=== PATIENT | male | born 1965 | race Hispanic/Latino ===

== ENCOUNTER 2019-06-12 13:01 | Inpatient (IN) | payer OTHER ==
[~2019-06-12] VITALS: Ht 139.7 cm; Wt 74.3 kg
[2019-06-12] MEDS ORDERED: SIMETHICONE 80 MG TAB.CHEW ONE (13:37)
[2019-06-12] MEDS ORDERED: DICYCLOMINE HCL 10 MG/ML 2ML AMP IM ONE (13:37)
[2019-06-12] MEDS ORDERED: ONDANSETRON HCL 4 MG/2 ML VIAL ONE (13:37)
[2019-06-12] MEDS ORDERED: SODIUM CHLORIDE 0.9% 1000ML 1,000 ML IV ONE (13:37)
[2019-06-12 13:52] LABS: BASOPHILS % (AUTO) 0.2 % (0.0-5.0); EOSINOPHILS % (AUTO) 0.2 % (0.0-8.0); HEMATOCRIT 26.2 % (42-54); LYMPHOCYTES % (AUTO) 8.3 % (21.0-51.0); MEAN CORPUSCULAR HEMOGLOBIN 26.5 pg (27.0-33.0); MEAN CORPUSCULAR HGB CONC 30.9 g/dL (32.0-36.0); MEAN CORPUSCULAR VOLUME 85.6 fL (79-99); MONOCYTES % (AUTO) 6.2 % (3.0-13.0); NEUTROPHILS % (AUTO) 84.6 % (40.0-77.0); PLATELET COUNT (AUTO) 99 K/uL (130-400); RED BLOOD CELL COUNT(AUTO) 3.06 MIL/uL (4.50-6.20); RED CELL DISTRIBUTION WIDTH 24.1 % (11.0-15.5); WHITE BLOOD COUNT (AUTO) 8.7 K/uL (4.8-10.8)
[2019-06-12 14:09] LABS: INR 1.48 (0.85-1.15); PARTIAL THROMBOPLASTIN TIME 32.3 SEC (26.3-35.5); PROTHROMBIN TIME 15.7 SEC (9.6-11.6)
[2019-06-12 14:10] LABS: ALBUMIN 2.3 g/dL (3.5-5.0); BILIRUBIN,TOTAL 10.3 mg/dL (0.2-1.0); CREATININE 1.4 mg/dL (0.5-1.5); TOTAL PROTEIN, SERUM 6.9 g/dL (6.0-8.3)
[2019-06-12 14:15] LABS: POTASSIUM 2.7 mmol/L (3.5-5.1)
[2019-06-12] MEDS ORDERED: POTASSIUM CHLORIDE 20 MEQ ERTAB PO ONE (15:50)
[2019-06-12] MEDS ORDERED: PHYTONADIONE 10 MG/1 ML AMP ONE (16:17)
[2019-06-12] MEDS: SODIUM CHLORIDE 0.9% 1000ML 1,000 ML IV SCH (17:00)
[2019-06-12] MEDS ORDERED: POTASSIUM CHLORIDE 20MEQ/100ML 100 ML IV PRN (17:00)
[2019-06-12] MEDS ORDERED: ONDANSETRON HCL 4 MG/2 ML VIAL IVP PRN (17:00)
[2019-06-12] MEDS ORDERED: LIDOCAINE HCL-MPF 1% 2ML VIAL IV PRN (17:00)
[2019-06-12] MEDS ORDERED: OCTREOTIDE ACETATE 1,250 MCG in SODIUM CHLORIDE 0.9% 250 ML IV SCH (17:00)
[2019-06-12 22:00] VITALS: BP 121/84
[2019-06-12 23:20] VITALS: BP 121/61
[2019-06-13] VITALS (14 sets, daily range): BP systolic 83–115; BP diastolic 46–80
[2019-06-13 00:43] LABS: HEMATOCRIT 22.3 % (42-54)
[2019-06-13 03:59] LABS: BASOPHILS % (AUTO) 0.3 % (0.0-5.0); EOSINOPHILS % (AUTO) 1.7 % (0.0-8.0); HEMATOCRIT 23.2 % (42-54); LYMPHOCYTES % (AUTO) 16.5 % (21.0-51.0); MEAN CORPUSCULAR HEMOGLOBIN 25.8 pg (27.0-33.0); MEAN CORPUSCULAR HGB CONC 30.6 g/dL (32.0-36.0); MEAN CORPUSCULAR VOLUME 84.4 fL (79-99); MONOCYTES % (AUTO) 6.6 % (3.0-13.0); NEUTROPHILS % (AUTO) 74.3 % (40.0-77.0); PLATELET COUNT (AUTO) 82 K/uL (130-400); RED BLOOD CELL COUNT(AUTO) 2.75 MIL/uL (4.50-6.20); RED CELL DISTRIBUTION WIDTH 24.2 % (11.0-15.5); WHITE BLOOD COUNT (AUTO) 6.4 K/uL (4.8-10.8)
[2019-06-13] MEDS ORDERED: SODIUM CHLORIDE 0.9% 100 ML IV ONE (04:00)
[2019-06-13] MEDS: PANTOPRAZOLE SODIUM 80 MG in SODIUM CHLORIDE 0.9% 100 ML IV SCH ×2 (04:09→16:50)
[2019-06-13] MEDS: SODIUM CHLORIDE 0.9% 1000ML 1,000 ML IV SCH ×3 (04:12→18:23)
[2019-06-13 04:29] LABS: ALBUMIN 1.7 g/dL (3.5-5.0); BILIRUBIN,TOTAL 8.7 mg/dL (0.2-1.0); CREATININE 1.1 mg/dL (0.5-1.5); TOTAL PROTEIN, SERUM 5.6 g/dL (6.0-8.3)
[2019-06-13] MEDS ORDERED: PROPOFOL 10 MG/ML 20ML VIAL IV ONE ×2 (07:28→07:29)
[2019-06-13] MEDS ORDERED: LIDOCAINE HCL 1% 20 ML VIAL ONE (07:29)
--- NOTE | 2019-06-13 09:15 | NUR ---
RETURNED TO ROOM VIA BED ACCOMPANIED BY LEATHER BELT MAKER. PT. AAOX3, RESP.'S EVEN AND UNLABORED. DENIES ANY C/O SOB, DENIES ANY CURRENT PAIN. COMPLETE ASSESSMENT DONE. CALL LIGHT WITHIN REACH, VERBALIZED ABILITY TO USE. BED LOW, SIDE RAILS UP X2.
[2019-06-13 12:05] LABS: HEMATOCRIT 27.8 % (42-54)
--- NOTE | 2019-06-13 12:47 | NUR ---
cm note met with patient and states resides at home with mother, and grandmother, [facility] he recently relocated from [place] to help care for grandmother, pt independent with adls and ambulation, no dme. no services, works, and able to drive. [facility] dc plan is back to home at [place]. provided with community resource packet, rx assist packet.referred to [facility] for possible medicaid assist. pt verbalizes understanding. Addendum: 06/13/19 at 1252 by CHELY PEREIRA CM Amended: Links added.
[2019-06-14 04:06] VITALS: BP 101/67
[2019-06-14] MEDS: SODIUM CHLORIDE 0.9% 1000ML 1,000 ML IV SCH ×3 (04:12→18:39)
[2019-06-14] MEDS ORDERED: SODIUM CHLORIDE 0.9% 100 ML IV ONE (05:32)
[2019-06-14] MEDS: PANTOPRAZOLE SODIUM 80 MG in SODIUM CHLORIDE 0.9% 100 ML IV SCH ×2 (05:38→17:12)
[2019-06-14 07:00] VITALS: BP 107/70
[2019-06-14 11:00] VITALS: BP 102/71
[2019-06-14 12:55] LABS: HEMATOCRIT 23.5 % (42-54); MEAN CORPUSCULAR HEMOGLOBIN 26.5 pg (27.0-33.0); MEAN CORPUSCULAR HGB CONC 30.2 g/dL (32.0-36.0); MEAN CORPUSCULAR VOLUME 87.7 fL (79-99); PLATELET COUNT (AUTO) 96 K/uL (130-400); RED BLOOD CELL COUNT(AUTO) 2.68 MIL/uL (4.50-6.20); RED CELL DISTRIBUTION WIDTH 23.4 % (11.0-15.5); WHITE BLOOD COUNT (AUTO) 5.6 K/uL (4.8-10.8)
[2019-06-14 13:18] LABS: BAND NEUTROPHILS % (MANUAL) 1 % (0-2); BASOPHILS % (MANUAL) 4 % (0-2); EOSINOPHILS % (MANUAL) 3 % (1-6); LYMPHOCYTES % (MANUAL) 14 % (22-44); MONOCYTES % (MANUAL) 1 % (2-9); REACTIVE LYMPHOCYTES 2 % (0-0); SEGMENTED NEUTROPHILS % 75 % (40-70)
[2019-06-14 13:19] LABS: PLATELET MORPHOLOGY COMMENT DECREASED
[2019-06-14 15:00] VITALS: BP 105/81
[2019-06-14 19:30] VITALS: BP 109/68
[2019-06-14 23:09] VITALS: BP 109/64
[2019-06-15 04:00] VITALS: BP 119/50
[2019-06-15] MEDS ORDERED: SODIUM CHLORIDE 0.9% 100 ML IV ONE (04:04)
[2019-06-15] MEDS: PANTOPRAZOLE SODIUM 80 MG in SODIUM CHLORIDE 0.9% 100 ML IV SCH ×2 (04:18→17:47)
[2019-06-15 04:36] LABS: BASOPHILS % (AUTO) 0.7 % (0.0-5.0); EOSINOPHILS % (AUTO) 2.5 % (0.0-8.0); HEMATOCRIT 23.4 % (42-54); LYMPHOCYTES % (AUTO) 16.6 % (21.0-51.0); MEAN CORPUSCULAR HEMOGLOBIN 26.3 pg (27.0-33.0); MEAN CORPUSCULAR HGB CONC 30.3 g/dL (32.0-36.0); MEAN CORPUSCULAR VOLUME 86.7 fL (79-99); MONOCYTES % (AUTO) 7.2 % (3.0-13.0); NEUTROPHILS % (AUTO) 72.5 % (40.0-77.0); PLATELET COUNT (AUTO) 90 K/uL (130-400); WHITE BLOOD COUNT (AUTO) 5.7 K/uL (4.8-10.8)
[2019-06-15 04:45] LABS: CREATININE 1.2 mg/dL (0.5-1.5); POTASSIUM 3.9 mmol/L (3.5-5.1)
[2019-06-15] MEDS: SODIUM CHLORIDE 0.9% 1000ML 1,000 ML IV SCH ×2 (05:00→15:00)
[2019-06-15 08:00] VITALS: BP 118/70
[2019-06-15 11:25] VITALS: BP 122/60
[2019-06-15] MEDS ORDERED: COMPOUND IV MISC 1 EACH IVSOLN MISC PRN (13:30)
[2019-06-15 13:49] LABS: % IRON SATURATION 5.2 % (30-44)
[2019-06-15 16:00] VITALS: BP 110/73
[2019-06-15] MEDS: IRON SUCROSE COMPLEX 100 MG in SODIUM CHLORIDE 0.9% 50 ML IV SCH (16:28)
[2019-06-15 19:05] VITALS: BP 102/67
[2019-06-15 23:03] VITALS: BP 91/64
[2019-06-16] VITALS (15 sets, daily range): BP systolic 91–122; BP diastolic 53–73
[2019-06-16] MEDS: PANTOPRAZOLE SODIUM 80 MG in SODIUM CHLORIDE 0.9% 100 ML IV SCH ×2 (03:33→16:19)
[2019-06-16 08:02] LABS: HEMATOCRIT 27.1 % (42-54); MEAN CORPUSCULAR HEMOGLOBIN 26.6 pg (27.0-33.0); MEAN CORPUSCULAR HGB CONC 29.5 g/dL (32.0-36.0); RED BLOOD CELL COUNT(AUTO) 3.01 MIL/uL (4.50-6.20); RED CELL DISTRIBUTION WIDTH 23.2 % (11.0-15.5); WHITE BLOOD COUNT (AUTO) 6.9 K/uL (4.8-10.8)
[2019-06-16 08:22] LABS: CREATININE 1.1 mg/dL (0.5-1.5)
[2019-06-16 08:27] LABS: ALBUMIN 1.7 g/dL (3.5-5.0); BILIRUBIN,TOTAL 11.5 mg/dL (0.2-1.0); TOTAL PROTEIN, SERUM 5.7 g/dL (6.0-8.3)
[2019-06-16] MEDS: IRON SUCROSE COMPLEX 100 MG in SODIUM CHLORIDE 0.9% 50 ML IV SCH (09:05)
[2019-06-16 09:42] LABS: INR 1.61 (0.85-1.15); PARTIAL THROMBOPLASTIN TIME 50.1 SEC (26.3-35.5); PROTHROMBIN TIME 17.1 SEC (9.6-11.6)
[2019-06-16] MEDS ORDERED: PHYTONADIONE 10 MG/1 ML AMP IM SCH (10:00)
--- NOTE | 2019-06-16 10:50 | NUR ---
DR. GATO HANNAH PAGED . AND RETURN CALL AND UDATE OF PT . LABS ,AND PT PLAN OF CARE TODAY, NO CHANGES . ONLY PT NEEDS TO SEE DR. HANNAH IN HIS OFFICE 4-5 DAYS AFTER DISCHARGE FOR PLAN OF CARE. TO FOLLOW AFTER DISCUSSION.
--- NOTE | 2019-06-16 11:10 | NUR ---
PT I N THE BATHROOM CHANGING , WHEN TELE MONITOR STAFF CALLED HEARTRATE UP TO THE 120.S . ASSIT PT NISHANT K TO BED AND HEART RATE WENT DOWN TO 100'S . PT STATED THAT HE GOT TIRED AND SOB. PT . PENDING A PARACENTESIS PROCEDURE. UPDATE DR. VILLAR OF HEART RATE CHANGES TO FOLLOW A 12 LEAD EKG
--- NOTE | 2019-06-16 11:25 | NUR ---
TO INTERVENTIONAL RADIOLOGY DEPT WITH STAFF , VIA WHEELCHAIR, , TELE MONITOR OFF . REVIEW V/S AND LAB WITH STAFF NURSE CASSIUS Barton.
--- NOTE | 2019-06-16 12:30 | NUR ---
U/S GD PARACENTESIS PROCEDURE PERFORMED BY DR Jolynn TOLEDO. PUNCTURE SITE RLQ AND PATIENT TOLERATED PROCEDURE WELL. TOTAL REMOVED 2.6 LITERS OF CLEAR YELLOW FLUID. END OF PROCEDURE AT 1215. CATHETER REMOVED AND DRESSING APPLIED. NO BLEEDING NOTED. REPORT GIVEN TO Russ PHILLIPS RN AND PATIENT TRANSPORTED TO [facility] VIA W/C AT 1230. AAO X3 WITH NO C/O PAIN. SPECIMEN SENT TO LAB.
--- NOTE | 2019-06-16 12:50 | NUR ---
BACK TO ROOM FROM THE PARACENTESIS PROCEDURE PT AAO X 3 DENIES ANY PAIN A SM DRSG TO HIS LOWER RT QUARDANT IN PLACE SOFT TO TOUCH NO DRAINAGE NOTED. POSTOP V/S STARTED AND OFFER HIS CL LIQ. PER REPORT A REMOVAL OF 2.6 LITERS AND SAMPLES WAS SEND TO LAB
[2019-06-16] MEDS ORDERED: ALBUMIN (HUMAN) 25% 100 ML IV SCH (14:00)
--- NOTE | 2019-06-16 14:08 | NUR ---
BLOOD PRESSURE DONE PER DR. GRAHAM ORTHOSATIC . FOLLOWS LYING HR OF 97, 99/60 SITTING HEART OF 96, B/P OF 112/66 STANDING HR OF 105, B/P OF 122/ 73
--- NOTE | 2019-06-16 14:30 | NUR ---
DR. VILLAR AWARE OF 12 LEAD EKG NO CHANGES
[2019-06-16 15:43] LABS: ALBUMIN,BODY FLUID 0.1 g/dL
[2019-06-16 16:19] LABS: APPEARANCE BODY FLUID CLEAR (CLEAR); COLOR,BODY FLUID YELLOW (LT YELLOW); SPECIMENTYPE,BODY FLUID ASCITES; TOTAL VOLUME,BODY FLUID 2600 mL
[2019-06-16 16:21] LABS: BODY FLUID WBC 35 /cu. mm.
[2019-06-16 16:22] LABS: BODY FLUID RBC 52 /cu. mm.
[2019-06-16 17:17] LABS: BF LYMPHOCYTE 82 %
[2019-06-17] VITALS: BP 91/55
[2019-06-17] MEDS: PANTOPRAZOLE SODIUM 80 MG in SODIUM CHLORIDE 0.9% 100 ML IV SCH (02:11)
[2019-06-17 04:00] VITALS: BP 93/62
[2019-06-17 06:10] LABS: BASOPHILS % (AUTO) 0.6 % (0.0-5.0); EOSINOPHILS % (AUTO) 1.3 % (0.0-8.0); HEMATOCRIT 24.4 % (42-54); LYMPHOCYTES % (AUTO) 13.5 % (21.0-51.0); MEAN CORPUSCULAR HEMOGLOBIN 26.9 pg (27.0-33.0); MEAN CORPUSCULAR HGB CONC 29.9 g/dL (32.0-36.0); MONOCYTES % (AUTO) 8.2 % (3.0-13.0); NEUTROPHILS % (AUTO) 75.5 % (40.0-77.0); PLATELET COUNT (AUTO) 98 K/uL (130-400); RED BLOOD CELL COUNT(AUTO) 2.71 MIL/uL (4.50-6.20); RED CELL DISTRIBUTION WIDTH 23.6 % (11.0-15.5)
[2019-06-17 07:53] VITALS: BP 103/63
[2019-06-17 08:27] LABS: ALBUMIN 1.9 g/dL (3.5-5.0); BILIRUBIN,TOTAL 12.1 mg/dL (0.2-1.0); TOTAL PROTEIN, SERUM 5.5 g/dL (6.0-8.3)
[2019-06-17 08:51] LABS: BILIRUBIN,DIRECT 10.2 mg/dL (0.0-0.3)
[2019-06-17] MEDS ORDERED: LACTULOSE 20 GM/30 ML UDCUP PO SCH (09:30)
[2019-06-17] MEDS: IRON SUCROSE COMPLEX 100 MG in SODIUM CHLORIDE 0.9% 50 ML IV SCH (09:33)
[2019-06-17 10:57] VITALS: BP 96/60
[2019-06-17] MEDS ORDERED: PANT40TA PO (11:29)
[2019-06-17] MEDS ORDERED: FERS325 PO (11:29)
[2019-06-17] MEDS ORDERED: LACT10SO PO (11:32)
--- NOTE | 2019-06-17 12:30 | NUR ---
DISCHARGE DISCHARGE INSTRUCTIONS GIVEN TO PATIENT, VERBALIZED UNDERSTANDING. PRESCRIPTIONS SENT TO [facility] PER PATIENT REQUEST. IV DISCONTINUED, TELEPAK REMOVED.
[2019-06-18] MEDS ORDERED: PANTOPRAZOLE SODIUM 40 MG TABLET.DR PO SCH (11:00)
== END 2019-06-17 13:00 | disposition home or self-care (01) | DRG 433 ==
LOC: EDH 13:01 → EDHIP 13:02 → 4BH 21:53
PROVIDERS: ADMIT Hospitalist; ATTEND Hospitalist
PROC: 0W9G3ZZ Drainage of Peritoneal Cavity, Percutaneous Approach (ICD-10-PCS; principal; 2019-06-16)
DX: K74.3 Primary biliary cirrhosis (principal); K92.2 Gastrointestinal hemorrhage, unspecified; E44.0 Moderate protein-calorie malnutrition; R18.8 Other ascites; D68.9 Coagulation defect, unspecified; D50.0 Iron deficiency anemia secondary to blood loss (chronic); Z68.38 Body mass index [BMI] 38.0-38.9, adult; F17.200 Nicotine dependence, unspecified, uncomplicated; D69.6 Thrombocytopenia, unspecified
CPT/HCPCS: 36415; 49083; 74181; 76700; 80048; 80053; 80076; 82042; 82140; 82270; 82607; 82746; 83540; 83550; 83615; 83690; 83735; 84157; 85014; 85018; 85025; 85027; 85610; 85730; 86850; 86900; 86901; 86922; 87071; 87205; 89051; 93005; A4606; C9113; G0378; J0500; J1756; J2354; J2405; J2704; J3430; J7030; P9046

== ENCOUNTER 2019-07-26 11:04 | Inpatient (IN) | payer MEDICAID, OTHER ==
[~2019-07-26] VITALS: Ht 170.2 cm; Wt 65.5 kg
[~2019-07-26 11:04] MED LIST: FERS325 PO; LACT10SO PO; PANT40TA PO
[2019-07-26 11:45] LABS: BASOPHILS % (AUTO) 0.2 % (0.0-5.0); EOSINOPHILS % (AUTO) 1.2 % (0.0-8.0); HEMATOCRIT 22.3 % (42-54); LYMPHOCYTES % (AUTO) 8.9 % (21.0-51.0); MEAN CORPUSCULAR HEMOGLOBIN 29.3 pg (27.0-33.0); MEAN CORPUSCULAR HGB CONC 31.8 g/dL (32.0-36.0); MEAN CORPUSCULAR VOLUME 92.1 fL (79-99); MONOCYTES % (AUTO) 5.3 % (3.0-13.0); NEUTROPHILS % (AUTO) 83.8 % (40.0-77.0); PLATELET COUNT (AUTO) 141 K/uL (130-400); RED BLOOD CELL COUNT(AUTO) 2.42 MIL/uL (4.50-6.20); RED CELL DISTRIBUTION WIDTH 21.9 % (11.0-15.5); WHITE BLOOD COUNT (AUTO) 10.3 K/uL (4.8-10.8)
[2019-07-26 11:55] LABS: CREATININE 1.5 mg/dL (0.5-1.5); POTASSIUM 4.3 mmol/L (3.5-5.1)
[2019-07-26 11:59] LABS: ALBUMIN 1.7 g/dL (3.5-5.0); BILIRUBIN,TOTAL 9.7 mg/dL (0.2-1.0); TOTAL PROTEIN, SERUM 5.9 g/dL (6.0-8.3)
[2019-07-26 12:58] LABS: INR 1.45 (0.85-1.15); PARTIAL THROMBOPLASTIN TIME 31.1 SEC (26.3-35.5); PROTHROMBIN TIME 15.4 SEC (9.6-11.6)
[2019-07-26] MEDS ORDERED: SODIUM CHLORIDE 0.9% 1000ML 1,000 ML IV ONE (13:24)
[2019-07-26] MEDS ORDERED: NITROGLYCERIN 0.4 MG SL TAB SL PRN (13:45)
[2019-07-26] MEDS ORDERED: ACETAMINOPHEN 325 MG TAB PO PRN ×2 (13:45)
[2019-07-26] MEDS ORDERED: MAG HYDROX/AL HYDROX/SIMETH ES 30 ML SUSP UDCUP PO PRN (13:45)
[2019-07-26] MEDS ORDERED: GUAIFENESIN-DM 200/20 MG 10 ML PO PRN (13:45)
[2019-07-26] MEDS ORDERED: ALBUMIN (HUMAN) 25% 200 ML IV SCH (13:45)
[2019-07-26] MEDS ORDERED: LACTULOSE 20 GM/30 ML UDCUP PO PRN (13:45)
[2019-07-26] MEDS ORDERED: ONDANSETRON HCL 4 MG/2 ML VIAL IV PRN (13:45)
[2019-07-26] MEDS ORDERED: DIPHENHYDRAMINE HCL 25 MG CAPSULE PO PRN (13:45)
[2019-07-26] MEDS ORDERED: DiphenhydrAMINE HCL 50 MG/ML VIAL IV PRN (13:45)
[2019-07-26 13:54] LABS: APPEARANCE,URINE CLEAR (CLEAR); BILIRUBIN,URINE SMALL (NEGATIVE); COLOR,URINE YELLOW (YELLOW); GLUCOSE, URINE (UA) NEGATIVE (NEGATIVE); KETONES,URINE NEGATIVE (NEGATIVE); LEUKOCYTE ESTERASE ,URINE NEGATIVE (NEGATIVE); NITRATE,URINE NEGATIVE (NEGATIVE); OCCULT BLOOD,URINE NEGATIVE (NEGATIVE); PH,URINE 6.5 (5.0-8.0); PROTEIN,URINE NEGATIVE (NEGATIVE); UROBILINOGEN,URINE 0.2 mg/dL (0.2-1.0)
[2019-07-26 14:04] LABS: BACTERIA,URINE Rare /HPF (None Seen); RBC,URINE None Seen /HPF (0-1); SQUAMOUS EPITHELIAL CELL,UR Rare /HPF (0-2); WBC,URINE None Seen /HPF (0-1)
[2019-07-26 17:18] LABS: HEMATOCRIT 20.8 % (42-54)
--- NOTE | 2019-07-26 17:32 | NUR ---
Transfusion orders Notified Dr. Schaefer of BP 91/52, hemoglobin 6.6/20.8 as reported by Stephy Ryan RN in emergency room. Received telephone order for 1 unit PRBC. Order placed and blood bank notified. Unit to be ready in a few minutes.
--- NOTE | 2019-07-26 17:32 | NUR ---
Received report from Cecy Ryan RN of ER, reports admission for Lower GI bleed sustaining BP 91/52 with hemoglobin of 6.6/20.8. History of Liver failure, cirrhosis, occult stool positive. Per Stephy Ryan RN no order on file for transfusion.
[2019-07-26 17:58] LABS: CREATININE 1.3 mg/dL (0.5-1.5); POTASSIUM 3.9 mmol/L (3.5-5.1)
[2019-07-26 18:03] VITALS: BP 112/55
[2019-07-26 19:55] VITALS: BP 95/58
--- NOTE | 2019-07-26 20:17 | NUR ---
RECEIVED PATIENT IN BED, AAOX3, NO ACUTE DISTRESS NOTED. PT CURRENTLY RECEIVING 1 UNIT OF PRBC, TOLERATING WELL, NO ADVERSE REACTIONS NOTED. POC DISCUSSED WITH PATIENT. WILL CONT TO MONITOR CLOSELY. ASSESSMENT DOCUMENTED.
[2019-07-26] MEDS: FAMOTIDINE/PF 20 MG/2 ML VIAL IV SCH (21:21)
[2019-07-26 23:22] VITALS: BP 91/57
[2019-07-27 03:06] VITALS: BP 90/57
[2019-07-27 05:46] LABS: BASOPHILS % (AUTO) 0.4 % (0.0-5.0); EOSINOPHILS % (AUTO) 1.5 % (0.0-8.0); HEMATOCRIT 23.1 % (42-54); LYMPHOCYTES % (AUTO) 10.8 % (21.0-51.0); MEAN CORPUSCULAR HEMOGLOBIN 28.8 pg (27.0-33.0); MEAN CORPUSCULAR VOLUME 89.9 fL (79-99); NEUTROPHILS % (AUTO) 79.8 % (40.0-77.0); PLATELET COUNT (AUTO) 124 K/uL (130-400); RED BLOOD CELL COUNT(AUTO) 2.57 MIL/uL (4.50-6.20); WHITE BLOOD COUNT (AUTO) 7.4 K/uL (4.8-10.8)
[2019-07-27 06:02] LABS: ALBUMIN 1.4 g/dL (3.5-5.0); BILIRUBIN,TOTAL 10.9 mg/dL (0.2-1.0); CREATININE 1.3 mg/dL (0.5-1.5); POTASSIUM 4.1 mmol/L (3.5-5.1); TOTAL PROTEIN, SERUM 4.8 g/dL (6.0-8.3)
[2019-07-27 08:34] VITALS: BP 95/52
[2019-07-27] MEDS ORDERED: ALBUMIN (HUMAN) 25% 50 ML IV SCH (09:00)
[2019-07-27] MEDS: MIDODRINE HCL 5 MG TABLET PO SCH ×3 (09:26→20:44)
[2019-07-27] MEDS: FAMOTIDINE/PF 20 MG/2 ML VIAL IV SCH ×2 (09:26→20:44)
[2019-07-27 12:31] VITALS: BP 100/57
[2019-07-27] MEDS: FERROUS SULFATE 325 MG TABLET.DR PO SCH ×2 (13:40→20:44)
[2019-07-27 15:54] VITALS: BP 97/46
--- NOTE | 2019-07-27 16:37 | NUR ---
D/C PLAN CM spoke to pt regarding d/c planning. Pt is ind. and lives with mother. Denies having any DME. States family can assist if needed. CM provided community resources packet. Plan to home. No needs verbalized or identified. Addendum: 07/27/19 at 1641 by BRIGIDO MEYER CM Amended: Links added.
[2019-07-27 19:40] VITALS: BP 88/47
[2019-07-27 20:30] VITALS: BP 91/54
[2019-07-28] VITALS (16 sets, daily range): BP systolic 77–104; BP diastolic 40–53
[2019-07-28 05:24] LABS: BASOPHILS % (AUTO) 0.2 % (0.0-5.0); EOSINOPHILS % (AUTO) 1.3 % (0.0-8.0); HEMATOCRIT 25.2 % (42-54); LYMPHOCYTES % (AUTO) 8.9 % (21.0-51.0); MEAN CORPUSCULAR HEMOGLOBIN 29.2 pg (27.0-33.0); MEAN CORPUSCULAR HGB CONC 32.1 g/dL (32.0-36.0); MONOCYTES % (AUTO) 5.1 % (3.0-13.0); NEUTROPHILS % (AUTO) 83.8 % (40.0-77.0); PLATELET COUNT (AUTO) 143 K/uL (130-400); RED BLOOD CELL COUNT(AUTO) 2.77 MIL/uL (4.50-6.20); RED CELL DISTRIBUTION WIDTH 19.8 % (11.0-15.5); WHITE BLOOD COUNT (AUTO) 8.6 K/uL (4.8-10.8)
[2019-07-28 05:39] LABS: INR 1.57 (0.85-1.15); PROTHROMBIN TIME 16.7 SEC (9.6-11.6)
[2019-07-28 05:46] LABS: ALBUMIN 1.7 g/dL (3.5-5.0); CREATININE 1.2 mg/dL (0.5-1.5); POTASSIUM 4.4 mmol/L (3.5-5.1); TOTAL PROTEIN, SERUM 5.1 g/dL (6.0-8.3)
[2019-07-28] MEDS: FAMOTIDINE/PF 20 MG/2 ML VIAL IV SCH ×2 (08:13→19:46)
[2019-07-28] MEDS: FERROUS SULFATE 325 MG TABLET.DR PO SCH ×3 (08:13→19:46)
[2019-07-28] MEDS: MIDODRINE HCL 5 MG TABLET PO SCH ×3 (08:13→20:06)
[2019-07-28] MEDS ORDERED: ALBUMIN (HUMAN) 25% 100 ML IV ONE (08:45)
[2019-07-28] MEDS ORDERED: ALBUMIN (HUMAN) 25% 200 ML IV ONE (08:45)
--- NOTE | 2019-07-28 08:46 | NUR ---
DR IVETT ECHEVARRIA PAGED RE; PLAN OR IF OKAY TO FEED PATIENT.
--- NOTE | 2019-07-28 08:57 | NUR ---
SPOKE WITH DR. SWAPNA LINO; PLAN STATES MAY D/C IF H/H IS ABOVE 7. PATIENT IS A CHX CIRRHOSIS.
[2019-07-28] MEDS ORDERED: CEFTRIAXONE SODIUM 1 GM IVP SCH (09:00)
--- NOTE | 2019-07-28 09:00 | NUR ---
U/S GUIDED PARACENTESIS PROCEDURE PERFORMED BY DR. CUNNINGHAM. PUNCTURE SITE RIGHT LOWER QUADRANT OF ABDOMEN AND PATIENT TOLERATED PROCEDURE WELL. TOTAL REMOVED 7.6 LITERS OF CLOUDY YELLOW ASCITES FLUID. END OF PROCEDURE AT 924. CATHETER REMOVED AND DRESSING APPLIED. NO BLEEDING NOTED. ALBUMIN 25% 50 GRAMS ORDERED PER [facility] ALBUMIN PROTOCOL TO BE GIVEN UPON ARRIVAL TO FLOOR. CALLED REPORT TO COLIN RUIZ. PATIENT TRANSPORTED VIA W/C TO 305 @ 0945. PT STABLE, AAO X3 WITH NO C/O PAIN.
--- NOTE | 2019-07-28 10:30 | NUR ---
S/P RIGHT PARACENTESIS 7.6 LITERS OUT, PATIENT WITH HYPOTENSION IN SBP 80'S-90'S, DR. KESSLER AWARE. HE WILL ENTER ORDERS. Addendum: 07/28/19 at 1454 by JOSEPH COLIN RN RN RIGHT LOWER QUDRANT PARACENTESIS SITE DRESSING; CLEAN AND DRY. NO BLEEDING.
[2019-07-28 11:26] LABS: ALBUMIN,BODY FLUID 0.1 g/dL
[2019-07-28 13:01] LABS: SPECIMENTYPE,BODY FLUID ASCITES
[2019-07-28 13:02] LABS: APPEARANCE BODY FLUID SLIGHTLY CLOUDY (CLEAR); COLOR,BODY FLUID YELLOW (LT YELLOW); TOTAL VOLUME,BODY FLUID 7600 mL
[2019-07-28 13:03] LABS: BODY FLUID WBC 71 /cu. mm.
[2019-07-28 13:04] LABS: BODY FLUID RBC 68 /cu. mm.
[2019-07-28] MEDS: LACTULOSE 20 GM/30 ML UDCUP PO SCH ×2 (13:07→19:46)
[2019-07-28 13:13] LABS: BF LYMPHOCYTE 31 %; BF MONOCYTE 49 %
[2019-07-28] MEDS ORDERED: MIDODRINE HCL 5 MG TABLET PO SCH (14:30)
[2019-07-28] MEDS ORDERED: ALBUMIN (HUMAN) 25% 100 ML IV SCH (14:45)
--- NOTE | 2019-07-28 15:23 | NUR ---
BP 96/59, HOLD TRANSFER; PER DR. VICENTE TRANSFER TO PCU HELD. PATIENT IS ASYMPTOMATIC AT THIS TIME BP IS GOING RISING SLOWLY. MONITOR AND CONTINUE WITH ALBUMIN.
[2019-07-28 16:12] LABS: BASOPHILS % (AUTO) 0.3 % (0.0-5.0); EOSINOPHILS % (AUTO) 1.6 % (0.0-8.0); HEMATOCRIT 21.9 % (42-54); LYMPHOCYTES % (AUTO) 10.2 % (21.0-51.0); MEAN CORPUSCULAR HEMOGLOBIN 29.2 pg (27.0-33.0); MEAN CORPUSCULAR VOLUME 91.3 fL (79-99); MONOCYTES % (AUTO) 7.2 % (3.0-13.0); NEUTROPHILS % (AUTO) 80.4 % (40.0-77.0); PLATELET COUNT (AUTO) 108 K/uL (130-400); RED CELL DISTRIBUTION WIDTH 20.1 % (11.0-15.5); WHITE BLOOD COUNT (AUTO) 6.7 K/uL (4.8-10.8)
--- NOTE | 2019-07-28 16:55 | NUR ---
DR EUCEDA AWARE OF 7.0 H/H STATES REPEAT IN 4 HOURS.
[2019-07-28] MEDS: ALBUMIN (HUMAN) 25% 50 ML IV SCH ×2 (19:00→23:21)
[2019-07-28] MEDS: LEVOFLOXACIN 500 MG/D5W 100 ML 100 ML IV SCH (20:07)
--- NOTE | 2019-07-28 21:05 | NUR ---
paged lonnie springer about patient's hemoglobin of 6.8 and hematocrit of 22.0. pending call back
--- NOTE | 2019-07-28 21:22 | NUR ---
paged lonnie springer again about patient's hemoglobin and hematocrit. pending call back
--- NOTE | 2019-07-28 21:48 | NUR ---
paged lonnie springer again. pending call back
--- NOTE | 2019-07-28 22:30 | NUR ---
paged lonnie springer. pending call back
--- NOTE | 2019-07-29 02:07 | NUR ---
transfused 1 unit of packed red blood cells from 00:05 to 02:05 as ordered by gian fleming. pending lab draws in the am. no allergic reaction or pain. no issues. vital signs stable at 130/54 blood pressure, respirations 18, heart rate 81, and temperature of 99 at 02:10.
[2019-07-29 03:36] VITALS: BP 118/55
[2019-07-29] MEDS: ALBUMIN (HUMAN) 25% 50 ML IV SCH ×3 (04:38→18:14)
[2019-07-29 05:02] LABS: HEMATOCRIT 23.9 % (42-54); MEAN CORPUSCULAR HEMOGLOBIN 29.8 pg (27.0-33.0); MEAN CORPUSCULAR HGB CONC 32.6 g/dL (32.0-36.0); MEAN CORPUSCULAR VOLUME 91.2 fL (79-99); PLATELET COUNT (AUTO) 105 K/uL (130-400); RED BLOOD CELL COUNT(AUTO) 2.62 MIL/uL (4.50-6.20); RED CELL DISTRIBUTION WIDTH 18.8 % (11.0-15.5); WHITE BLOOD COUNT (AUTO) 6.1 K/uL (4.8-10.8)
[2019-07-29 05:15] LABS: BASOPHILS % (MANUAL) 2 % (0-2); EOSINOPHILS % (MANUAL) 3 % (1-6); LYMPHOCYTES % (MANUAL) 14 % (22-44); MAN.DIFF COMMENT-IMPRESSION MANUAL DIFFERENTIAL; MONOCYTES % (MANUAL) 6 % (2-9); PLATELET MORPHOLOGY COMMENT DECREASED; SEGMENTED NEUTROPHILS % 75 % (40-70)
[2019-07-29 05:34] LABS: ALBUMIN 2.3 g/dL (3.5-5.0); BILIRUBIN,TOTAL 10.2 mg/dL (0.2-1.0); CREATININE 1.2 mg/dL (0.5-1.5); POTASSIUM 3.9 mmol/L (3.5-5.1); TOTAL PROTEIN, SERUM 4.8 g/dL (6.0-8.3)
[2019-07-29 07:30] VITALS: BP 101/47
[2019-07-29] MEDS: FERROUS SULFATE 325 MG TABLET.DR PO SCH ×3 (09:33→19:42)
[2019-07-29] MEDS: FAMOTIDINE/PF 20 MG/2 ML VIAL IV SCH ×2 (09:33→19:42)
[2019-07-29] MEDS: LACTULOSE 20 GM/30 ML UDCUP PO SCH ×2 (09:33→19:42)
[2019-07-29] MEDS: MIDODRINE HCL 5 MG TABLET PO SCH ×3 (09:33→19:42)
[2019-07-29 11:00] VITALS: BP 120/59
[2019-07-29] MEDS ORDERED: PHARMACY COMMUNICATION MISC SCH (14:45)
[2019-07-29 16:00] VITALS: BP 109/54
[2019-07-29 19:00] VITALS: BP 115/50
[2019-07-29] MEDS: LEVOFLOXACIN 500 MG/D5W 100 ML 100 ML IV SCH (19:42)
[2019-07-29 23:20] VITALS: BP 122/53
[2019-07-30 04:02] VITALS: BP 116/56
[2019-07-30] MEDS ORDERED: BISACODYL 10 MG SUPP.RECT RC ONE ×2 (04:45→04:49)
[2019-07-30 06:35] LABS: BASOPHILS % (AUTO) 0.4 % (0.0-5.0); EOSINOPHILS % (AUTO) 2.6 % (0.0-8.0); HEMATOCRIT 30.1 % (42-54); LYMPHOCYTES % (AUTO) 11.3 % (21.0-51.0); MEAN CORPUSCULAR HEMOGLOBIN 30.5 pg (27.0-33.0); MEAN CORPUSCULAR HGB CONC 32.6 g/dL (32.0-36.0); MEAN CORPUSCULAR VOLUME 93.8 fL (79-99); NEUTROPHILS % (AUTO) 79.3 % (40.0-77.0); PLATELET COUNT (AUTO) 117 K/uL (130-400); RED BLOOD CELL COUNT(AUTO) 3.21 MIL/uL (4.50-6.20); RED CELL DISTRIBUTION WIDTH 19.9 % (11.0-15.5); WHITE BLOOD COUNT (AUTO) 7.7 K/uL (4.8-10.8)
[2019-07-30 06:52] LABS: BILIRUBIN,TOTAL 11.9 mg/dL (0.2-1.0); CREATININE 1.2 mg/dL (0.5-1.5); POTASSIUM 3.8 mmol/L (3.5-5.1); TOTAL PROTEIN, SERUM 5.8 g/dL (6.0-8.3)
[2019-07-30 07:57] VITALS: BP 120/59
[2019-07-30] MEDS: LACTULOSE 20 GM/30 ML UDCUP PO SCH ×3 (09:00→22:37)
[2019-07-30] MEDS: MIDODRINE HCL 5 MG TABLET PO SCH ×3 (09:31→21:37)
[2019-07-30] MEDS: FERROUS SULFATE 325 MG TABLET.DR PO SCH ×3 (09:32→21:37)
[2019-07-30] MEDS: FAMOTIDINE/PF 20 MG/2 ML VIAL IV SCH ×2 (09:32→21:37)
[2019-07-30 10:34] VITALS: BP 128/53
[2019-07-30 16:01] VITALS: BP 121/61
[2019-07-30 20:00] VITALS: BP 110/54
[2019-07-30] MEDS: LEVOFLOXACIN 500 MG/D5W 100 ML 100 ML IV SCH (21:35)
--- NOTE | 2019-07-30 22:30 | NUR ---
Hospitalist on-call STANLEY ABURTO was called reporting pt refused to take Lactulose and wanted suppository in AM , since Lactulose will not make him defecate. Ordered to talk to pt and explain that he still needs to take Lactulose for his current condition and will be given Dulcolax supp in AM. 2236: Oracle Technical Developer explained again the importance of taking lactulose and that Dulcolax supp will be given in AM. Pt agreed and took the lactulose.
[2019-07-31] VITALS: BP 126/64
[2019-07-31 03:57] VITALS: BP 130/61
[2019-07-31] MEDS ORDERED: BISACODYL 10 MG SUPP.RECT RC ONE (05:00)
[2019-07-31 05:45] LABS: BASOPHILS % (AUTO) 0.3 % (0.0-5.0); EOSINOPHILS % (AUTO) 1.8 % (0.0-8.0); HEMATOCRIT 27.7 % (42-54); LYMPHOCYTES % (AUTO) 9.9 % (21.0-51.0); MEAN CORPUSCULAR HEMOGLOBIN 30.2 pg (27.0-33.0); MEAN CORPUSCULAR HGB CONC 32.1 g/dL (32.0-36.0); MEAN CORPUSCULAR VOLUME 93.9 fL (79-99); MONOCYTES % (AUTO) 5.9 % (3.0-13.0); NEUTROPHILS % (AUTO) 81.8 % (40.0-77.0); PLATELET COUNT (AUTO) 115 K/uL (130-400); RED BLOOD CELL COUNT(AUTO) 2.95 MIL/uL (4.50-6.20); RED CELL DISTRIBUTION WIDTH 20.1 % (11.0-15.5); WHITE BLOOD COUNT (AUTO) 6.1 K/uL (4.8-10.8)
[2019-07-31 08:00] VITALS: BP 120/70
[2019-07-31] MEDS: LACTULOSE 20 GM/30 ML UDCUP PO SCH ×2 (09:21→13:55)
[2019-07-31] MEDS: FERROUS SULFATE 325 MG TABLET.DR PO SCH ×2 (09:21→13:54)
[2019-07-31] MEDS: MIDODRINE HCL 5 MG TABLET PO SCH ×2 (09:21→13:54)
[2019-07-31] MEDS: FAMOTIDINE/PF 20 MG/2 ML VIAL IV SCH (09:22)
[2019-07-31 12:00] VITALS: BP 124/67
--- NOTE | 2019-07-31 14:30 | NUR ---
PT D/C INSTRUCTIONS GIVEN USING TEACH BACK TECHNIQUE RE; NEW MEDS, S/S TO WATCH FOR AND WHEN TO CALL MD OR 911. Make sure to follow up with your primary doctor. Will will provide a list of primary physicians in your area. Follow up with Dr. Shelton Manager Etl in 1-2 weeks call to set up an appointment at phone [phone]. If you experience severe abdominal pain, shortness of breath that does not resolve with rest, fever of 101.0, nausea vomiting call your primary physician or visit your nearest emergency room, or you may call 911. Make sure to continue taking lactulose as it will decrease your ammonia level. Make sure to continue taking your Midodrine as it will help keep your blood pressure elevated within a normal range of sytolic blood pressure of less than 130 sytolic blood pressure higher than 90. call your primary doctor if blood pressure remains lower than sytolic blood pressure less than 90 (top number in blood pressure reading). IV OUT INTACT, NO BLEEDING, AAOX3, DENIES ANY CONCERNS OR QUESTIONS AT THIS TIME. TELE REMOVED.
== END 2019-07-31 15:40 | disposition home or self-care (01) | DRG 433 ==
LOC: EDH 11:04 → EDHIP 11:05 → 3BH 17:59
PROVIDERS: ADMIT Family Medicine; ATTEND Family Medicine
PROC: 0W9G3ZZ Drainage of Peritoneal Cavity, Percutaneous Approach (ICD-10-PCS; principal; 2019-07-28)
PROC: 30233N1 Transfusion of Nonautologous Red Blood Cells into Peripheral Vein, Percutaneous Approach (ICD-10-PCS; 2019-07-28)
DX: K74.3 Primary biliary cirrhosis (principal); D62 Acute posthemorrhagic anemia; N17.9 Acute kidney failure, unspecified; K92.2 Gastrointestinal hemorrhage, unspecified; K76.6 Portal hypertension; D68.4 Acquired coagulation factor deficiency; E87.1 Hypo-osmolality and hyponatremia; E44.0 Moderate protein-calorie malnutrition; N18.9 Chronic kidney disease, unspecified; E11.22 Type 2 diabetes mellitus with diabetic chronic kidney disease; F10.10 Alcohol abuse, uncomplicated; E86.9 Volume depletion, unspecified; I95.89 Other hypotension; I25.10 Atherosclerotic heart disease of native coronary artery without angina pectoris; Z83.3 Family history of diabetes mellitus; K74.60 Unspecified cirrhosis of liver; Z68.22 Body mass index [BMI] 22.0-22.9, adult
CPT/HCPCS: 36415; 36430; 49083; 80048; 80053; 81001; 82040; 82042; 82140; 82270; 82550; 83605; 83690; 84157; 84484; 85014; 85018; 85025; 85610; 85730; 86850; 86900; 86901; 86922; 87071; 87076; 87205; 89051; 93005; 94760; A4606; G0378; J0696; J1956; J3490; J7030; P9016; P9046; P9047

== ENCOUNTER 2019-08-24 17:42 | Inpatient (IN) | payer OTHER ==
[~2019-08-24] VITALS: Ht 170.2 cm; Wt 61.8 kg
[~2019-08-24 17:42] MED LIST changes: -LACT10SO PO
[2019-08-24 18:58] LABS: BASOPHILS % (AUTO) 0.1 % (0.0-5.0); EOSINOPHILS % (AUTO) 0.4 % (0.0-8.0); HEMATOCRIT 31.8 % (42-54); LYMPHOCYTES % (AUTO) 4.7 % (21.0-51.0); MEAN CORPUSCULAR HEMOGLOBIN 31.6 pg (27.0-33.0); MEAN CORPUSCULAR HGB CONC 33.6 g/dL (32.0-36.0); MEAN CORPUSCULAR VOLUME 93.8 fL (79-99); MONOCYTES % (AUTO) 4.3 % (3.0-13.0); NEUTROPHILS % (AUTO) 89.6 % (40.0-77.0); PLATELET COUNT (AUTO) 95 K/uL (130-400); RED BLOOD CELL COUNT(AUTO) 3.39 MIL/uL (4.50-6.20); RED CELL DISTRIBUTION WIDTH 19.4 % (11.0-15.5); WHITE BLOOD COUNT (AUTO) 8.2 K/uL (4.8-10.8)
[2019-08-24] MEDS ORDERED: DICYCLOMINE HCL 20 MG TAB ONE (19:06)
[2019-08-24] MEDS ORDERED: ONDANSETRON HCL 4 MG/2 ML VIAL ONE (19:06)
[2019-08-24 19:18] LABS: CREATININE 4.5 mg/dL (0.5-1.5); POTASSIUM 4.8 mmol/L (3.5-5.1)
[2019-08-24 19:31] LABS: ALBUMIN 2.5 g/dL (3.5-5.0); TOTAL PROTEIN, SERUM 6.7 g/dL (6.0-8.3)
[2019-08-24 19:46] LABS: BILIRUBIN,TOTAL 17.7 mg/dL (0.2-1.0)
[2019-08-24 19:47] LABS: INR 1.52 (0.85-1.15); PARTIAL THROMBOPLASTIN TIME 33.8 SEC (26.3-35.5); PROTHROMBIN TIME 16.2 SEC (9.6-11.6)
[2019-08-24] MEDS ORDERED: HYDRALAZINE HCL 20 MG/ML VIAL IV PRN (22:00)
[2019-08-24] MEDS: LACTULOSE 20 GM/30 ML UDCUP PO SCH (22:00)
[2019-08-24] MEDS ORDERED: MORPHINE SULFATE 2 MG/ML 1ML SYG IV PRN (22:00)
[2019-08-24] MEDS: CEFTRIAXONE SODIUM 1 GM IVP SCH (22:30)
[2019-08-25] MEDS ORDERED: AZITHROMYCIN 500MG+NS 250ML 250 ML IV ONE (01:19)
[2019-08-25] MEDS ORDERED: CEFTRIAXONE SODIUM 1 GM ONE (01:19)
--- NOTE | 2019-08-25 02:20 | NUR ---
RECEIVED BY JOHN FROM ER. ASSISTED TO BED. PLACED ON COLLEGE OR UNIVERSITY BUSINESS MANAGER, NIBP, PULSE OXIMETER. DENIES PAIN. GIVEN CALL LIGHT AFTER EXPLAINING IT TO HIM. SEE ADMISSION DATA BASE.
[2019-08-25 03:04] VITALS: BP 107/62
[2019-08-25] MEDS ORDERED: SPIR100T5 PO (03:42)
[2019-08-25] MEDS ORDERED: FURO40TA7 PO (03:42)
[2019-08-25] MEDS ORDERED: URSO300C4 PO (03:42)
[2019-08-25] MEDS: LACTULOSE 20 GM/30 ML UDCUP PO SCH ×3 (05:05→20:37)
[2019-08-25 07:34] LABS: BASOPHILS % (AUTO) 0.1 % (0.0-5.0); EOSINOPHILS % (AUTO) 1.2 % (0.0-8.0); HEMATOCRIT 29.1 % (42-54); LYMPHOCYTES % (AUTO) 8.5 % (21.0-51.0); MEAN CORPUSCULAR HEMOGLOBIN 33.1 pg (27.0-33.0); MEAN CORPUSCULAR HGB CONC 34.7 g/dL (32.0-36.0); MEAN CORPUSCULAR VOLUME 95.4 fL (79-99); MONOCYTES % (AUTO) 4.7 % (3.0-13.0); NEUTROPHILS % (AUTO) 84.9 % (40.0-77.0); PLATELET COUNT (AUTO) 75 K/uL (130-400); RED BLOOD CELL COUNT(AUTO) 3.05 MIL/uL (4.50-6.20); RED CELL DISTRIBUTION WIDTH 19.4 % (11.0-15.5); WHITE BLOOD COUNT (AUTO) 6.8 K/uL (4.8-10.8)
[2019-08-25 07:58] LABS: CREATININE 4.4 mg/dL (0.5-1.5); POTASSIUM 4.7 mmol/L (3.5-5.1)
[2019-08-25 08:00] VITALS: BP 88/56
[2019-08-25 12:00] VITALS: BP 103/52
[2019-08-25] MEDS ORDERED: MIDODRINE HCL 5 MG TABLET PO SCH (16:00)
[2019-08-25 17:00] VITALS: BP 93/56
[2019-08-25 19:28] LABS: APPEARANCE,URINE SL CLOUDY (CLEAR); BILIRUBIN,URINE LARGE (NEGATIVE); GLUCOSE, URINE (UA) NEGATIVE (NEGATIVE); KETONES,URINE 5 mg/dL (NEGATIVE); LEUKOCYTE ESTERASE ,URINE TRACE (NEGATIVE); NITRATE,URINE NEGATIVE (NEGATIVE); OCCULT BLOOD,URINE MODERATE (NEGATIVE); PH,URINE 5.5 (5.0-8.0); PROTEIN,URINE NEGATIVE (NEGATIVE)
[2019-08-25 19:30] VITALS: BP 96/54
[2019-08-25 19:31] LABS: CREATININE,URINE RANDOM 158 mg/dL (30-135); SODIUM,URINE RANDOM 32 mmol/l (40-220)
[2019-08-25 19:33] LABS: COLOR,URINE DARK YELLOW (YELLOW)
[2019-08-25 19:56] LABS: BACTERIA,URINE Few /HPF (None Seen); SQUAMOUS EPITHELIAL CELL,UR Rare /HPF (0-2)
[2019-08-25] MEDS: CEFTRIAXONE SODIUM 1 GM IVP SCH (20:37)
[2019-08-25] MEDS: AZITHROMYCIN 500MG+NS 250ML 250 ML IV SCH ×2 (20:37)
[2019-08-25] MEDS: MIDODRINE HCL 5 MG TABLET PO SCH (20:37)
[2019-08-25 23:14] VITALS: BP 95/56
[2019-08-26 04:00] VITALS: BP 100/63
[2019-08-26 04:31] LABS: BASOPHILS % (AUTO) 0.3 % (0.0-5.0); HEMATOCRIT 28.2 % (42-54); LYMPHOCYTES % (AUTO) 11.1 % (21.0-51.0); MEAN CORPUSCULAR HEMOGLOBIN 31.8 pg (27.0-33.0); MEAN CORPUSCULAR VOLUME 93.4 fL (79-99); MONOCYTES % (AUTO) 6.5 % (3.0-13.0); NEUTROPHILS % (AUTO) 79.7 % (40.0-77.0); PLATELET COUNT (AUTO) 89 K/uL (130-400); RED BLOOD CELL COUNT(AUTO) 3.02 MIL/uL (4.50-6.20); RED CELL DISTRIBUTION WIDTH 19.5 % (11.0-15.5); WHITE BLOOD COUNT (AUTO) 7.4 K/uL (4.8-10.8)
[2019-08-26 05:02] LABS: % IRON SATURATION 38.1 % (30-44)
[2019-08-26 05:12] LABS: ALBUMIN 1.9 g/dL (3.5-5.0); BILIRUBIN,TOTAL 15.1 mg/dL (0.2-1.0); CREATININE 4.3 mg/dL (0.5-1.5); POTASSIUM 4.8 mmol/L (3.5-5.1); TOTAL PROTEIN, SERUM 5.5 g/dL (6.0-8.3)
[2019-08-26] MEDS: LACTULOSE 20 GM/30 ML UDCUP PO SCH ×3 (05:45→20:03)
[2019-08-26] MEDS: ONDANSETRON HCL 4 MG/2 ML VIAL IV PRN (06:00)
[2019-08-26 08:14] VITALS: BP 96/57
[2019-08-26] MEDS: MIDODRINE HCL 5 MG TABLET PO SCH ×3 (08:42→20:03)
[2019-08-26 11:24] VITALS: BP 104/51
[2019-08-26] MEDS ORDERED: EPOETIN ALFA 10,000 UNIT/ML VIAL SQ SCH (12:45)
[2019-08-26 13:35] LABS: MEAN CORPUSCULAR HEMOGLOBIN 32.7 pg (27.0-33.0); MEAN CORPUSCULAR HGB CONC 34.3 g/dL (32.0-36.0); MEAN CORPUSCULAR VOLUME 95.2 fL (79-99); RED BLOOD CELL COUNT(AUTO) 3.15 MIL/uL (4.50-6.20); RED CELL DISTRIBUTION WIDTH 19.7 % (11.0-15.5); WHITE BLOOD COUNT (AUTO) 8.5 K/uL (4.8-10.8)
[2019-08-26 13:47] LABS: CREATININE 4.4 mg/dL (0.5-1.5); POTASSIUM 4.5 mmol/L (3.5-5.1)
[2019-08-26 17:16] VITALS: BP 95/56
[2019-08-26 19:29] VITALS: BP 102/63
[2019-08-26] MEDS: CEFTRIAXONE SODIUM 1 GM IVP SCH (20:04)
[2019-08-26] MEDS: AZITHROMYCIN 500MG+NS 250ML 250 ML IV SCH (20:04)
[2019-08-26 23:22] VITALS: BP 91/60
[2019-08-27] VITALS (7 sets, daily range): BP systolic 92–103; BP diastolic 52–59
[2019-08-27 03:13] LABS: HEMATOCRIT 30.8 % (42-54); MEAN CORPUSCULAR HEMOGLOBIN 32.7 pg (27.0-33.0); MEAN CORPUSCULAR HGB CONC 34.7 g/dL (32.0-36.0); MEAN CORPUSCULAR VOLUME 94.2 fL (79-99); PLATELET COUNT (AUTO) 108 K/uL (130-400); RED BLOOD CELL COUNT(AUTO) 3.27 MIL/uL (4.50-6.20); RED CELL DISTRIBUTION WIDTH 19.6 % (11.0-15.5); WHITE BLOOD COUNT (AUTO) 7.9 K/uL (4.8-10.8)
[2019-08-27 03:25] LABS: BAND NEUTROPHILS % (MANUAL) 4 % (0-2); LYMPHOCYTES % (MANUAL) 14 % (22-44); MONOCYTES % (MANUAL) 3 % (2-9); SEGMENTED NEUTROPHILS % 79 % (40-70)
[2019-08-27 03:26] LABS: MAN.DIFF COMMENT-IMPRESSION MANUAL DIFFERENTIAL; PLATELET MORPHOLOGY COMMENT SLIGHTLY DECREASED
[2019-08-27 03:30] LABS: POTASSIUM 4.3 mmol/L (3.5-5.1)
[2019-08-27] MEDS: LACTULOSE 20 GM/30 ML UDCUP PO SCH ×3 (04:55→21:23)
--- NOTE | 2019-08-27 08:30 | NUR ---
ASSESSMENT COMPLETED AND DOCUMENTED. DENIES PAIN OR SHORTNESS OF BREATH. PENDING PCR RESULTS (SENT TO LAB [facility] 08/25/19). PENDING PARACENTESIS. PENDING CONSULT WITH DR. MURPHY (DR. MONTOYA PEDIATRICS TEACHER ). DR. PAPO DAVE IN TO SEE PATIENT, UPDATES GIVEN.
[2019-08-27] MEDS: MIDODRINE HCL 5 MG TABLET PO SCH ×3 (08:45→20:54)
--- NOTE | 2019-08-27 10:00 | NUR ---
RE: PARACENTESIS PATIENT SCHEDULED FOR PARACENTESIS SINCE 08/25/19. PATIENT TESTED FOR COVID-[address] Arvin CUNNINGHAM MADE AWARE AND RESCHEDULED PARACENTESIS UNTIL COVID-19 RESULTS ARE OBTAINED. Mitchell SALAS RN MADE AWARE OF PROCEDURE OUTCOME.
--- NOTE | 2019-08-27 15:48 | NUR ---
SPOKE WITH DR. MONTOYA ABOUT CONSULT. GIVEN LAB RESULTS, US RESULTS. STATES WILL SEE PATIENT AN OUTPATIENT AND WILL HAVE APPOINTMENT ARRANGED.
--- NOTE | 2019-08-27 16:30 | NUR ---
COVID 19 SWAB DONE AND TAKEN TO LAB BY SAMARA WILSON
[2019-08-27] MEDS: CEFTRIAXONE SODIUM 1 GM IVP SCH (22:16)
[2019-08-28] MEDS: AZITHROMYCIN 500MG+NS 250ML 250 ML IV SCH (01:54)
[2019-08-28 03:00] VITALS: BP 96/59
[2019-08-28 05:08] LABS: HEMATOCRIT 32.7 % (42-54); MEAN CORPUSCULAR HEMOGLOBIN 32.1 pg (27.0-33.0); MEAN CORPUSCULAR HGB CONC 32.4 g/dL (32.0-36.0); MEAN CORPUSCULAR VOLUME 99.1 fL (79-99); RED BLOOD CELL COUNT(AUTO) 3.3 MIL/uL (4.50-6.20); RED CELL DISTRIBUTION WIDTH 19.6 % (11.0-15.5); WHITE BLOOD COUNT (AUTO) 7.5 K/uL (4.8-10.8)
[2019-08-28 05:10] LABS: CREATININE 3.4 mg/dL (0.5-1.5); POTASSIUM 4.4 mmol/L (3.5-5.1)
[2019-08-28] MEDS: LACTULOSE 20 GM/30 ML UDCUP PO SCH ×3 (05:27→20:37)
--- NOTE | 2019-08-28 07:30 | NUR ---
ASSESSMENT ENCOUNTERED PT A&OX3, CALM COOPERATIVE AND DOES NOT APPEAR TO BE IN ANY DISTRESS NOR ANY NEURO DEFICITS PRESENT. PT DENIES SOB, NAUSEA BUT DOES C/O ABDOMINAL DISTENTION AND TENDER TO TOUCH. PT IS AMBULATORY, GAIT SLOW BUT STEADY WITH STAND BY ASSIST. COVID RESULTS PENDING FOR POSSIBLE PARACENTESIS, INFORMED PT TO REMAIN NPO, PT AGREES. CALL LIGHT WITHIN REACH.
[2019-08-28] MEDS: MIDODRINE HCL 5 MG TABLET PO SCH ×3 (07:40→20:37)
[2019-08-28 07:41] VITALS: BP 109/65
[2019-08-28 12:42] VITALS: BP 109/65
[2019-08-28 16:14] VITALS: BP 107/53
[2019-08-28 19:30] VITALS: BP 105/58
[2019-08-28] MEDS: CEFTRIAXONE SODIUM 1 GM IVP SCH (20:37)
[2019-08-28] MEDS: HYDROMORPHONE HCL 0.5 MG/0.5 ML ML IVP PRN (21:26)
[2019-08-28 23:30] VITALS: BP 110/66
[2019-08-29] MEDS: AZITHROMYCIN 500MG+NS 250ML 250 ML IV SCH (01:00)
--- NOTE | 2019-08-29 02:15 | NUR ---
EMESIS, DARK BROWN GRAINY, PT FEELING NAUSEA, ZOFRAN WILL BE GIVEN. PT STATES THIS IS THE FIRST TIME HE HAS EXPERIENCED N/V.
[2019-08-29] MEDS: ONDANSETRON HCL 4 MG/2 ML VIAL IV PRN ×3 (02:19→21:17)
--- NOTE | 2019-08-29 02:20 | NUR ---
NEW IV 24G, RIGHT WRIST, PATENT, INTACT, FLUSHED. REMOVED IV ON LEFT ARM D/T INFILTRATION.
[2019-08-29 04:00] VITALS: BP 108/65
[2019-08-29] MEDS: LACTULOSE 20 GM/30 ML UDCUP PO SCH ×3 (05:30→21:04)
[2019-08-29 08:00] VITALS: BP 96/38
[2019-08-29] MEDS: MIDODRINE HCL 5 MG TABLET PO SCH ×3 (08:57→21:17)
[2019-08-29 11:25] VITALS: BP 97/60
[2019-08-29 15:29] VITALS: BP 105/78
[2019-08-29 20:20] VITALS: BP 97/56
[2019-08-29] MEDS: CEFTRIAXONE SODIUM 1 GM IVP SCH (21:17)
[2019-08-30] VITALS (7 sets, daily range): BP systolic 93–110; BP diastolic 52–64
[2019-08-30] MEDS: AZITHROMYCIN 500MG+NS 250ML 250 ML IV SCH ×2 (02:04→23:39)
[2019-08-30 03:54] LABS: HEMATOCRIT 27.7 % (42-54); MEAN CORPUSCULAR HGB CONC 33.9 g/dL (32.0-36.0); MEAN CORPUSCULAR VOLUME 97.2 fL (79-99); RED BLOOD CELL COUNT(AUTO) 2.85 MIL/uL (4.50-6.20); RED CELL DISTRIBUTION WIDTH 18.7 % (11.0-15.5); WHITE BLOOD COUNT (AUTO) 6.3 K/uL (4.8-10.8)
[2019-08-30 04:06] LABS: CREATININE 3.5 mg/dL (0.5-1.5); POTASSIUM 4.2 mmol/L (3.5-5.1)
[2019-08-30] MEDS: LACTULOSE 20 GM/30 ML UDCUP PO SCH ×3 (07:32→20:11)
[2019-08-30] MEDS: MIDODRINE HCL 5 MG TABLET PO SCH ×3 (09:18→20:11)
[2019-08-30] MEDS: CEFTRIAXONE SODIUM 1 GM IVP SCH (21:09)
[2019-08-30] MEDS: HYDROMORPHONE HCL 0.5 MG/0.5 ML ML IVP PRN (23:55)
[2019-08-31 04:13] VITALS: BP 105/65
[2019-08-31 04:39] LABS: BASOPHILS % (AUTO) 0.4 % (0.0-5.0); EOSINOPHILS % (AUTO) 3.5 % (0.0-8.0); HEMATOCRIT 30.4 % (42-54); LYMPHOCYTES % (AUTO) 10.7 % (21.0-51.0); MEAN CORPUSCULAR HEMOGLOBIN 32.8 pg (27.0-33.0); MEAN CORPUSCULAR HGB CONC 33.2 g/dL (32.0-36.0); MEAN CORPUSCULAR VOLUME 98.7 fL (79-99); MONOCYTES % (AUTO) 7.4 % (3.0-13.0); NEUTROPHILS % (AUTO) 76.3 % (40.0-77.0); PLATELET COUNT (AUTO) 88 K/uL (130-400); RED BLOOD CELL COUNT(AUTO) 3.08 MIL/uL (4.50-6.20); RED CELL DISTRIBUTION WIDTH 18.9 % (11.0-15.5); WHITE BLOOD COUNT (AUTO) 6.9 K/uL (4.8-10.8)
[2019-08-31 05:10] LABS: BILIRUBIN,TOTAL 14.7 mg/dL (0.2-1.0); CREATININE 3.2 mg/dL (0.5-1.5); TOTAL PROTEIN, SERUM 6.2 g/dL (6.0-8.3)
[2019-08-31] MEDS: LACTULOSE 20 GM/30 ML UDCUP PO SCH ×4 (05:13→19:56)
[2019-08-31 08:00] VITALS: BP 105/60
[2019-08-31] MEDS: MIDODRINE HCL 5 MG TABLET PO SCH ×3 (08:37→19:55)
[2019-08-31] MEDS: HYDROMORPHONE HCL 0.5 MG/0.5 ML ML IVP PRN ×2 (08:49→20:03)
[2019-08-31 12:00] VITALS: BP 98/59
--- NOTE | 2019-08-31 13:23 | NUR ---
cm note spoke to pt and states resides at home with his mother Mariella, he is independeth with adls and selfcare, but has been weak lately. states that his brother can help him at home with personal care if needed.if needed he can borrow a w/c , discussed low income clinics in the area, and rx asssist, pt states uses [facility] for [facility]. states no dc needs. dc plan is back to home. Addendum: 08/31/19 at 1326 by CHELY PEREIRA CM Amended: Links added.
[2019-08-31 16:00] VITALS: BP 108/66
[2019-08-31 19:30] VITALS: BP 110/61
--- NOTE | 2019-08-31 20:03 | NUR ---
PAIN Pt medicated with Dilaudid for pain.
--- NOTE | 2019-08-31 21:03 | NUR ---
MED EFFECT Resting quietly in bed,denies pain.
[2019-08-31] MEDS: CEFTRIAXONE SODIUM 1 GM IVP SCH (22:22)
[2019-08-31 23:30] VITALS: BP 102/59
[2019-08-31] MEDS: ONDANSETRON HCL 4 MG/2 ML VIAL IV PRN (23:47)
--- NOTE | 2019-08-31 23:47 | NUR ---
NAUSEA Pt c/o nausea,Zofran given.
[2019-09-01] VITALS (14 sets, daily range): BP systolic 91–119; BP diastolic 45–64
[2019-09-01] MEDS: AZITHROMYCIN 500MG+NS 250ML 250 ML IV SCH ×2 (00:11→21:09)
--- NOTE | 2019-09-01 03:37 | NUR ---
EMESIS Pt vomitted dark coffee ground emesis,c/o abdominal pain.Dilaudid held this time.ZOfran is not due,paged Hospitalist Syed Hardwick Np.
--- NOTE | 2019-09-01 04:25 | NUR ---
PROTONIX Protonix given iv.
[2019-09-01] MEDS ORDERED: HYDROMORPHONE HCL 0.5 MG/0.5 ML ML ONE (04:38)
--- NOTE | 2019-09-01 04:44 | NUR ---
PAIN Dilaudid 0.2 mg iv given for c/o of abdominal pain.
[2019-09-01] MEDS: PANTOPRAZOLE 40 MG/VIAL IVP SCH (04:56)
[2019-09-01] MEDS: LACTULOSE 20 GM/30 ML UDCUP PO SCH ×3 (04:57→21:09)
[2019-09-01 05:33] LABS: BASOPHILS % (AUTO) 0.4 % (0.0-5.0); EOSINOPHILS % (AUTO) 0.9 % (0.0-8.0); HEMATOCRIT 28.2 % (42-54); LYMPHOCYTES % (AUTO) 6.5 % (21.0-51.0); MEAN CORPUSCULAR HEMOGLOBIN 33.1 pg (27.0-33.0); MEAN CORPUSCULAR HGB CONC 33.3 g/dL (32.0-36.0); MEAN CORPUSCULAR VOLUME 99.3 fL (79-99); MONOCYTES % (AUTO) 7.1 % (3.0-13.0); NEUTROPHILS % (AUTO) 83.1 % (40.0-77.0); PLATELET COUNT (AUTO) 98 K/uL (130-400); RED BLOOD CELL COUNT(AUTO) 2.84 MIL/uL (4.50-6.20); RED CELL DISTRIBUTION WIDTH 19.3 % (11.0-15.5); WHITE BLOOD COUNT (AUTO) 9.2 K/uL (4.8-10.8)
--- NOTE | 2019-09-01 05:44 | NUR ---
MED EFFECT Pt resting quietly,after Dilaudid was given for pain,no distress noted.
[2019-09-01 06:35] LABS: ALBUMIN 1.9 g/dL (3.5-5.0); BILIRUBIN,TOTAL 13.4 mg/dL (0.2-1.0); CREATININE 3.5 mg/dL (0.5-1.5); POTASSIUM 4.3 mmol/L (3.5-5.1)
[2019-09-01 06:55] LABS: INR 1.64 (0.85-1.15); PARTIAL THROMBOPLASTIN TIME 36.4 SEC (26.3-35.5); PROTHROMBIN TIME 17.4 SEC (9.6-11.6)
[2019-09-01] MEDS: MIDODRINE HCL 5 MG TABLET PO SCH ×3 (09:17→21:08)
[2019-09-01] MEDS ORDERED: HYDROMORPHONE HCL 0.5 MG/0.5 ML ML IVP PRN (10:00)
--- NOTE | 2019-09-01 10:20 | NUR ---
RE: COVID-19 ASSESSMENT PATIENT PRESENTED WITH SYMPTOMS OF SHORTNESS OF PAIN, LOSS OF APPETITE, AND FATIGUE. COVID PCR ORDERED 08/27/19 AND RESULTED 08/29/19. COVID-19 NEGATIVE. Addendum: 09/01/19 at 1053 by CASSIUS LOZADA RN RN Amended: Links added.
[2019-09-01] MEDS ORDERED: ALBUMIN (HUMAN) 25% 200 ML IV PRN (11:15)
--- NOTE | 2019-09-01 11:21 | NUR ---
U/S GD PARACENTESIS PROCEDURE PERFORMED BY DR Arvin CUNNINGHAM. PUNCTURE SITE RLQ AND PATIENT TOLERATED PROCEDURE WELL. TOTAL REMOVED 6.3LITERS OF CLOUDY YELLOW FLUID. END OF PROCEDURE AT 1100. CATHETER REMOVED AND DRESSING APPLIED. NO BLEEDING NOTED. REPORT GIVEN TO Jacki HANNAH RN AND PATIENT TRANSPORTED TO 15 VIA BED. AAO X3 WITH NO C/O PAIN. SPECIMEN SENT TO LAB.
[2019-09-01 12:02] LABS: SPECIMENTYPE,BODY FLUID ASCITES
[2019-09-01 12:03] LABS: APPEARANCE BODY FLUID CLEAR (CLEAR); BODY FLUID RBC 565 /cu. mm.; BODY FLUID WBC 47 /cu. mm.; COLOR,BODY FLUID YELLOW (LT YELLOW); TOTAL VOLUME,BODY FLUID 6300 mL
[2019-09-01 12:05] LABS: BF EOSINOPHIL 1 %; BF LYMPHOCYTE 31 %; BF MESOTHELIAL 40 %; BF MONOCYTE 12 %
[2019-09-01] MEDS ORDERED: FLUDROCORTISONE ACETATE 0.1 MG TABLET PO SCH (14:55)
[2019-09-01] MEDS: CEFTRIAXONE SODIUM 1 GM IVP SCH (21:09)
[2019-09-02 03:06] VITALS: BP 92/45
[2019-09-02 04:29] LABS: EOSINOPHILS % (AUTO) 0.3 % (0.0-8.0); HEMATOCRIT 21.4 % (42-54); LYMPHOCYTES % (AUTO) 8.6 % (21.0-51.0); MEAN CORPUSCULAR HEMOGLOBIN 33.5 pg (27.0-33.0); MEAN CORPUSCULAR HGB CONC 33.6 g/dL (32.0-36.0); MEAN CORPUSCULAR VOLUME 99.5 fL (79-99); MONOCYTES % (AUTO) 5.9 % (3.0-13.0); NEUTROPHILS % (AUTO) 84.5 % (40.0-77.0); PLATELET COUNT (AUTO) 66 K/uL (130-400); RED BLOOD CELL COUNT(AUTO) 2.15 MIL/uL (4.50-6.20); RED CELL DISTRIBUTION WIDTH 19.3 % (11.0-15.5); WHITE BLOOD COUNT (AUTO) 5.8 K/uL (4.8-10.8)
[2019-09-02 04:40] LABS: ALBUMIN 2.2 g/dL (3.5-5.0); BILIRUBIN,TOTAL 9.3 mg/dL (0.2-1.0); CREATININE 3.2 mg/dL (0.5-1.5); POTASSIUM 3.6 mmol/L (3.5-5.1)
[2019-09-02] MEDS: LACTULOSE 20 GM/30 ML UDCUP PO SCH ×3 (06:10→20:22)
[2019-09-02] MEDS: PANTOPRAZOLE 40 MG/VIAL IVP SCH (06:10)
--- NOTE | 2019-09-02 07:40 | NUR ---
ASSESSMENT ENCOUNTERED PT A&OX3, CALM COOPERATIVE AND DOES NOT APPEAR TO BE IN ANY DISTRESS NOR ANY NEURO DEFICITS PRESENT. PT DENIES PAIN, SOB, NAUSEA BUT DOES C/O GENERALIZED BODY WEAKNESS AND ACHES. PT IS AMBULATORY, GAIT SLOW BUT STEADY WITH ASSIST. PT ABDOMEN SOFT. CALL LIGHT WITHIN REACH.
[2019-09-02] MEDS: FLUDROCORTISONE ACETATE 0.1 MG TABLET PO SCH (08:37)
[2019-09-02] MEDS: MIDODRINE HCL 5 MG TABLET PO SCH ×3 (08:37→20:21)
[2019-09-02 11:24] VITALS: BP 98/51
--- NOTE | 2019-09-02 11:36 | NUR ---
RDSCREEN - LOS X 9 Pt admitted with abdominal pain. Decompensated liver cirrhosis. S/p paracentesis, coffee ground emesis as per EMR. Pt with Heart Healthy diet order in place. 0% PO intake. BUN 69, Cr 3.2, GFR 22, Alb 2.2. Cachetic appearance, per EMR. Recommend Renal Non Dialysis diet modification Recommend Nepro TID RD to continue to monitor. Please notify as additional nutrition concerns arise. Thank you.
[2019-09-02 12:27] LABS: HEMATOCRIT 23.1 % (42-54)
[2019-09-02 15:23] VITALS: BP 97/54
[2019-09-02 19:57] VITALS: BP 102/52
[2019-09-02] MEDS: CEFTRIAXONE SODIUM 1 GM IVP SCH (20:22)
[2019-09-02] MEDS: AZITHROMYCIN 500MG+NS 250ML 250 ML IV SCH (20:22)
[2019-09-03] VITALS: BP 95/52
[2019-09-03 04:00] VITALS: BP 101/51
[2019-09-03] MEDS: PANTOPRAZOLE 40 MG/VIAL IVP SCH (06:33)
[2019-09-03] MEDS: LACTULOSE 20 GM/30 ML UDCUP PO SCH ×2 (06:33→14:00)
[2019-09-03] MEDS ORDERED: Midodrine Hcl PO (07:25)
[2019-09-03] MEDS ORDERED: FLUD.1 PO (07:25)
[2019-09-03 07:32] LABS: EOSINOPHILS % (AUTO) 0.3 % (0.0-8.0); HEMATOCRIT 21.9 % (42-54); LYMPHOCYTES % (AUTO) 5.2 % (21.0-51.0); MEAN CORPUSCULAR HEMOGLOBIN 33.8 pg (27.0-33.0); MEAN CORPUSCULAR HGB CONC 34.2 g/dL (32.0-36.0); MEAN CORPUSCULAR VOLUME 98.6 fL (79-99); MONOCYTES % (AUTO) 3.7 % (3.0-13.0); NEUTROPHILS % (AUTO) 90.2 % (40.0-77.0); PLATELET COUNT (AUTO) 63 K/uL (130-400); RED BLOOD CELL COUNT(AUTO) 2.22 MIL/uL (4.50-6.20); RED CELL DISTRIBUTION WIDTH 19.9 % (11.0-15.5); WHITE BLOOD COUNT (AUTO) 6.2 K/uL (4.8-10.8)
[2019-09-03 07:43] LABS: CREATININE 2.6 mg/dL (0.5-1.5); POTASSIUM 3.7 mmol/L (3.5-5.1)
[2019-09-03 08:00] VITALS: BP 96/50
[2019-09-03] MEDS: FLUDROCORTISONE ACETATE 0.1 MG TABLET PO SCH (08:16)
[2019-09-03] MEDS: MIDODRINE HCL 5 MG TABLET PO SCH ×2 (08:17→14:33)
[2019-09-03 08:39] LABS: PLATELET MORPHOLOGY COMMENT DECREASED
== END 2019-09-03 15:38 | disposition home or self-care (01) | DRG 433 ==
LOC: EDH 17:42 → EDHIP 17:43 → DAHIP 08-25 02:20
PROVIDERS: ADMIT Hospitalist; ATTEND Hospitalist
PROC: 0W9G3ZZ Drainage of Peritoneal Cavity, Percutaneous Approach (ICD-10-PCS; principal; 2019-09-01)
DX: K74.60 Unspecified cirrhosis of liver (principal); N17.9 Acute kidney failure, unspecified; N39.0 Urinary tract infection, site not specified; K92.2 Gastrointestinal hemorrhage, unspecified; D68.4 Acquired coagulation factor deficiency; E87.1 Hypo-osmolality and hyponatremia; R18.8 Other ascites; D69.6 Thrombocytopenia, unspecified; N18.9 Chronic kidney disease, unspecified; D69.59 Other secondary thrombocytopenia; E11.22 Type 2 diabetes mellitus with diabetic chronic kidney disease; E86.9 Volume depletion, unspecified; F17.200 Nicotine dependence, unspecified, uncomplicated; I25.10 Atherosclerotic heart disease of native coronary artery without angina pectoris; I95.89 Other hypotension; K74.5 Biliary cirrhosis, unspecified; R62.7 Adult failure to thrive; D64.9 Anemia, unspecified
CPT/HCPCS: 0099U; 36415; 49083; 71045; 74018; 76705; 80048; 80053; 81001; 82140; 82270; 82533; 82570; 83540; 83550; 83690; 84300; 85014; 85018; 85025; 85027; 85610; 85730; 87071; 87088; 87205; 89051; C9113; G0378; J0456; J0696; J0885; J1170; J2405; P9046; U0003

== ENCOUNTER 2019-09-07 02:09 | Inpatient (IN) | payer MEDICAID, OTHER ==
[~2019-09-07 02:09] MED LIST changes: +FLUD.1 PO; +FURO40TA7 PO; +Midodrine Hcl PO; +SPIR100T5 PO; +URSO300C4 PO
[2019-09-07] MEDS ORDERED: ONDANSETRON HCL 4 MG/2 ML VIAL ONE (02:39)
[2019-09-07] MEDS ORDERED: METOCLOPRAMIDE 10 MG/2 ML VIAL ONE (02:39)
[2019-09-07] MEDS ORDERED: SODIUM CHLORIDE 0.9% 100 ML IV ONE ×3 (02:41→12:48)
[2019-09-07 03:18] LABS: BASOPHILS % (AUTO) 0.1 % (0.0-5.0); EOSINOPHILS % (AUTO) 0.1 % (0.0-8.0); LYMPHOCYTES % (AUTO) 5.1 % (21.0-51.0); MEAN CORPUSCULAR HEMOGLOBIN 33.5 pg (27.0-33.0); MEAN CORPUSCULAR HGB CONC 33.8 g/dL (32.0-36.0); MONOCYTES % (AUTO) 4.5 % (3.0-13.0); NUCLEATED RED BLOOD CELLS 0.1 % (0.0-0.19); PLATELET COUNT (AUTO) 109 K/uL (130-400); RED BLOOD CELL COUNT(AUTO) 2.03 MIL/uL (4.50-6.20); RED CELL DISTRIBUTION WIDTH 19.9 % (11.0-15.5); WHITE BLOOD COUNT (AUTO) 15.2 K/uL (4.8-10.8)
[2019-09-07 03:20] LABS: HEMATOCRIT 20.1 % (42-54)
[2019-09-07 03:35] LABS: ALANINE AMINOTRANSFERASE 23 U/L (12-78); ALBUMIN 1.7 g/dL (3.5-5.0); ASPARTATE AMINOTRANSFERASE 52 U/L (10-37); BILIRUBIN,TOTAL 8.3 mg/dL (0.2-1.0); CARBON DIOXIDE 17 mmol/L (21-32); CHLORIDE 99 mmol/L (101-111); CREATINE KINASE, TOTAL 16 U/L (21-232); CREATININE 3.7 mg/dL (0.5-1.5); GLOMERULAR FILTR. RATE CALC 18 mL/min (>60); GLUCOSE,RANDOM 102 mg/dL (70-105); MYOGLOBIN 91 ng/mL (10-92); POTASSIUM 4.1 mmol/L (3.5-5.1); SODIUM SERUM 130 mmol/L (136-145); TOTAL PROTEIN, SERUM 4.8 g/dL (6.0-8.3); TROPONIN I < 0.04 ng/mL (0.00-0.06)
[2019-09-07 03:42] LABS: UREA NITROGEN, BLOOD 86 mg/dL (7-18)
[2019-09-07 03:52] LABS: INR 1.68 (0.85-1.15); PARTIAL THROMBOPLASTIN TIME 38.4 SEC (26.3-35.5); PROTHROMBIN TIME 17.8 SEC (9.6-11.6)
[2019-09-07] MEDS ORDERED: RENAL DOSE IV SCH (05:00)
[2019-09-07] MEDS ORDERED: ERGOCALCIFEROL (VITAMIN D2) 50,000 UNIT CAPSULE PO ONE (05:00)
[2019-09-07] MEDS: LACTULOSE 20 GM/30 ML UDCUP PO SCH ×2 (05:00→13:00)
[2019-09-07] MEDS: MIDODRINE HCL 5 MG TABLET PO SCH (05:00)
[2019-09-07] MEDS ORDERED: RIFAXIMIN 200 MG TABLET PO SCH (05:00)
[2019-09-07] MEDS ORDERED: ONDANSETRON HCL 4 MG/2 ML VIAL IV PRN (05:00)
[2019-09-07] MEDS ORDERED: LACTULOSE 20 GM/30 ML UDCUP ONE (06:17)
[2019-09-07] MEDS ORDERED: PHYTONADIONE 10 MG/1 ML AMP ONE (06:18)
[2019-09-07] MEDS ORDERED: METHYLPREDNISOLONE SOD SUCC 40MG/ML 1ML ONE (06:18)
[2019-09-07] MEDS ORDERED: ZOSYN 3.375GM+NS 50ML 50 ML IV ONE (06:18)
[2019-09-07] MEDS ORDERED: OCTREOTIDE ACETATE 100 MCG/ML AMP ONE (06:20)
[2019-09-07 07:32] LABS: CRP QUANTITATIVE 44.2 mg/L (0.00-9.0)
[2019-09-07 07:46] LABS: APPEARANCE,URINE Cloudy (CLEAR); BILIRUBIN,URINE Large (NEGATIVE); COLOR,URINE Dark Yellow (YELLOW); GLUCOSE, URINE (UA) Negative (NEGATIVE); KETONES,URINE Negative (NEGATIVE); LEUKOCYTE ESTERASE ,URINE Small (NEGATIVE); NITRATE,URINE Negative (NEGATIVE); OCCULT BLOOD,URINE Nonhemolyzed Trace (NEGATIVE); PROTEIN,URINE Negative (NEGATIVE)
[2019-09-07 07:56] LABS: BACTERIA,URINE Rare /HPF (None Seen); HYALINE CASTS, URINE 51-100 /LPF (0-1 /LPF); MUCUS,URINE Moderate LPF (None Seen); RBC,URINE 0-1 /HPF (0-1); TRANSITIONAL EPI CELLS,URINE Moderate /HPF (None Seen)
[2019-09-07] MEDS: RIFAXIMIN 550 MG TABLET PO SCH (09:00)
[2019-09-07] MEDS: ZINC SULFATE 220 CAPSULE PO SCH (09:00)
[2019-09-07] MEDS: ASCORBIC ACID 500 MG TAB PO SCH (09:00)
--- NOTE | 2019-09-07 17:34 | NUR ---
INITIAL SW spoke with patient's mother, Mariella Wetzel. She states that patient lives with her. No home services or DME as per mother. Patient is no longer working and is in the process of filing for disability. He needs help to complete ADL's and does not drive. Family assists as needed. Patient has no PCP. Pharmacy [facility] located on [address] in [place]. DCP is home. Patient has no insurance or benefits. He is being assisted by [employer] with financial issues. ART educated mother on $4 [employer] and $5 [facility] program. Addendum: 09/07/19 at 1737 by LILY BAL Amended: Links added.
[2019-09-07 18:15] VITALS: BP 93/54
[2019-09-07] MEDS: PANTOPRAZOLE SODIUM 80 MG in SODIUM CHLORIDE 0.9% 100 ML IV SCH ×2 (18:30→22:47)
[2019-09-07] MEDS ORDERED: OCTREOTIDE ACETATE 500 MCG in SODIUM CHLORIDE 0.9% 97.5 ML IV SCH (18:45)
[2019-09-07 19:00] VITALS: BP 108/48
[2019-09-07 19:45] VITALS: BP 99/48
[2019-09-07 20:15] VITALS: BP 93/50
[2019-09-07 21:15] VITALS: BP 100/44
[2019-09-07] MEDS: METHYLPREDNISOLONE SOD SUCC 125MG/2ML VIAL IV SCH (21:37)
[2019-09-07 22:15] VITALS: BP 95/53
[2019-09-08] VITALS (10 sets, daily range): BP systolic 84–113; BP diastolic 44–73
[2019-09-08 00:24] LABS: HEMATOCRIT 24.8 % (42-54)
[2019-09-08 01:09] LABS: INR 1.5 (0.85-1.15)
[2019-09-08] MEDS: ZOSYN 3.375GM+NS 50ML 50 ML IV SCH ×4 (05:00→17:47)
[2019-09-08] MEDS: METHYLPREDNISOLONE SOD SUCC 125MG/2ML VIAL IV SCH ×3 (06:08→20:17)
[2019-09-08 07:11] LABS: HEMATOCRIT 24.8 % (42-54); LYMPHOCYTES % (AUTO) 4.3 % (21.0-51.0); MEAN CORPUSCULAR HEMOGLOBIN 31.3 pg (27.0-33.0); MEAN CORPUSCULAR HGB CONC 34.3 g/dL (32.0-36.0); MEAN CORPUSCULAR VOLUME 91.2 fL (79-99); MONOCYTES % (AUTO) 1.9 % (3.0-13.0); NEUTROPHILS % (AUTO) 92.8 % (40.0-77.0); PLATELET COUNT (AUTO) 88 K/uL (130-400); RED BLOOD CELL COUNT(AUTO) 2.72 MIL/uL (4.50-6.20); RED CELL DISTRIBUTION WIDTH 21.1 % (11.0-15.5); WHITE BLOOD COUNT (AUTO) 8.3 K/uL (4.8-10.8)
[2019-09-08 08:00] LABS: ALBUMIN 1.8 g/dL (3.5-5.0); CRP QUANTITATIVE 47.2 mg/L (0.00-9.0); POTASSIUM 4.8 mmol/L (3.5-5.1); TOTAL PROTEIN, SERUM 4.9 g/dL (6.0-8.3)
[2019-09-08 08:02] LABS: CREATININE 3.6 mg/dL (0.5-1.5)
--- NOTE | 2019-09-08 09:50 | NUR ---
DR. Esequiel TEMPLE AT BEDSIDE. UPDATED ON PT. STATUS AND VS TREND; VERBALIZED UNDERSTANDING.
[2019-09-08] MEDS ORDERED: METHYLPREDNISOLONE SOD SUCC 40MG/ML 1ML ONE (10:17)
[2019-09-08] MEDS: RIFAXIMIN 550 MG TABLET PO SCH ×2 (10:23→20:17)
[2019-09-08] MEDS: ZINC SULFATE 220 CAPSULE PO SCH (10:23)
[2019-09-08] MEDS: ASCORBIC ACID 500 MG TAB PO SCH (10:24)
[2019-09-08] MEDS: MIDODRINE HCL 5 MG TABLET PO SCH ×3 (10:24→20:26)
[2019-09-08] MEDS: LACTULOSE 20 GM/30 ML UDCUP PO SCH ×2 (13:02→20:17)
[2019-09-08] MEDS: PANTOPRAZOLE 40 MG/VIAL IVP SCH ×2 (13:43→20:16)
[2019-09-08 14:05] LABS: HEMATOCRIT 24.9 % (42-54)
--- NOTE | 2019-09-08 15:05 | NUR ---
TRANSFERRED TO ROOM 223 VIA BED. SANDOSTATIN INFUSING ORDERED.
--- NOTE | 2019-09-08 16:27 | NUR ---
CHART CHECK COMPLETED. Pt IS A 53 Y.O. MALE ADMITTED SECONDARY TO ACUTE BLOOD LOSS ANEMIA, GI BLEED, ENCEPHALOPATHY. Pt HAS A PAST MEDICAL HISTORY SIGNIFICANT FOR LIVER CIRRHOSIS, ANEMIA, ACUTE ON CHRONIC RENAL FAILURE, HYPONATREMIA, PARACENTESIS. Pt CURRENTLY NPO DUE TO ADMITTING DIAGNOSIS. PLEASE REQUEST FORMAL SKILLED SPEECH/SWALLOW EVALUATION IF Pt PRESENTS WITH +S/S OF ASPIRATION SUCH COUGH RESPONSE, THROAT CLEAR, OR WET VOCAL QUALITY DURING P.O. Addendum: 09/08/19 at 1628 by ANNELISE MCKINLEY [facility] Amended: Links added.
[2019-09-08 21:24] LABS: HEMATOCRIT 27.4 % (42-54)
[2019-09-09 03:54] VITALS: BP 106/64
[2019-09-09] MEDS: ZOSYN 3.375GM+NS 50ML 50 ML IV SCH ×2 (05:19→17:00)
[2019-09-09] MEDS: METHYLPREDNISOLONE SOD SUCC 125MG/2ML VIAL IV SCH ×3 (05:19→20:30)
[2019-09-09] MEDS: LACTULOSE 20 GM/30 ML UDCUP PO SCH ×2 (05:19→20:31)
[2019-09-09 06:01] LABS: HEMATOCRIT 24.7 % (42-54); LYMPHOCYTES % (AUTO) 4.8 % (21.0-51.0); MEAN CORPUSCULAR HEMOGLOBIN 30.9 pg (27.0-33.0); MEAN CORPUSCULAR VOLUME 90.8 fL (79-99); MONOCYTES % (AUTO) 2.6 % (3.0-13.0); NEUTROPHILS % (AUTO) 91.9 % (40.0-77.0); PLATELET COUNT (AUTO) 95 K/uL (130-400); RED BLOOD CELL COUNT(AUTO) 2.72 MIL/uL (4.50-6.20); RED CELL DISTRIBUTION WIDTH 21.2 % (11.0-15.5); WHITE BLOOD COUNT (AUTO) 8.4 K/uL (4.8-10.8)
[2019-09-09 06:39] LABS: ALBUMIN 1.8 g/dL (3.5-5.0); BILIRUBIN,TOTAL 9.3 mg/dL (0.2-1.0); CREATININE 3.4 mg/dL (0.5-1.5); CRP QUANTITATIVE 43.6 mg/L (0.00-9.0); POTASSIUM 4.2 mmol/L (3.5-5.1); TOTAL PROTEIN, SERUM 4.9 g/dL (6.0-8.3)
[2019-09-09 08:40] VITALS: BP 108/56
[2019-09-09 09:00] LABS: HEMATOCRIT 30.8 % (42-54)
[2019-09-09] MEDS: ZINC SULFATE 220 CAPSULE PO SCH (09:42)
[2019-09-09] MEDS: ASCORBIC ACID 500 MG TAB PO SCH (09:42)
[2019-09-09] MEDS: MIDODRINE HCL 5 MG TABLET PO SCH ×3 (09:42→20:30)
[2019-09-09] MEDS: RIFAXIMIN 550 MG TABLET PO SCH ×2 (09:42→20:30)
[2019-09-09] MEDS: PANTOPRAZOLE 40 MG/VIAL IVP SCH ×2 (09:59→20:30)
--- NOTE | 2019-09-09 10:08 | NUR ---
RD NOTIFICATION - TUBE FEEDING RECOMMENDATIONS Recommend continuous Suplena initiated at 15mls/hr. Goal rate 30mls/hr. Recommend flush 130ml Q4hrs. Recommendations faxed to 2D, RN/Nurse Station notified. NUTRITION NOTE: Pt admitted with Acute Blood loss, NGT placement. Hx decompensated Liver with ascites, Renal failure, paracentesis. BUN 103, Cr 3.4, GFR 20, Alb 1.8. Pt Ht and Wt obtained from RN (Ht 167.64cm, Wt 49Kg). Vitamin C, Zinc in place. RD to continue to monitor. Please notify as additional nutrition concerns arise. Thank you.
[2019-09-09 12:45] VITALS: BP 100/53
[2019-09-09 14:27] LABS: HEMATOCRIT 28.3 % (42-54)
[2019-09-09 16:12] VITALS: BP 105/55
--- NOTE | 2019-09-09 17:31 | NUR ---
Started nephro tube feeding @1730 15ml/hr. Increase by 5 ml/hr at 2230 and q5hrs until reach goal of 30ml/hr.
[2019-09-09 20:54] VITALS: BP 94/54
[2019-09-09 21:18] LABS: HEMATOCRIT 27.5 % (42-54)
[2019-09-09] MEDS ORDERED: SODIUM CHLORIDE 0.9% 50 ML IV ONE (21:22)
--- NOTE | 2019-09-09 23:00 | NUR ---
TUBE FEEDING RESIDUAL = 0, TUBE FEEDING INCREASED TO 20ML PER HR.
[2019-09-10] VITALS (7 sets, daily range): BP systolic 92–113; BP diastolic 47–68
--- NOTE | 2019-09-10 00:30 | NUR ---
PT MORE RESPONSIVE NOW, ASKED FOR WATER ORAL CARE PROVIDED. PT ABLE TO STATE NAME AND ANSWER YES/NO QUESTIONS.
--- NOTE | 2019-09-10 04:00 | NUR ---
TUBE FEED <10ML RESIDUAL ASPIRATED FROM NG, TUBE FEED INCREASED TO 25ML/HR. NOTED HEELS RED BUT BLANCHABLE FLOATED OFF BED WITH PILLOW.
[2019-09-10] MEDS: METHYLPREDNISOLONE SOD SUCC 125MG/2ML VIAL IV SCH ×3 (05:23→21:10)
[2019-09-10] MEDS: ZOSYN 3.375GM+NS 50ML 50 ML IV SCH ×2 (05:23→16:45)
[2019-09-10 06:03] LABS: BASOPHILS % (AUTO) 0.1 % (0.0-5.0); EOSINOPHILS % (AUTO) 1.9 % (0.0-8.0); HEMATOCRIT 25.7 % (42-54); LYMPHOCYTES % (AUTO) 3.7 % (21.0-51.0); MEAN CORPUSCULAR HEMOGLOBIN 31.7 pg (27.0-33.0); MEAN CORPUSCULAR HGB CONC 34.2 g/dL (32.0-36.0); MEAN CORPUSCULAR VOLUME 92.4 fL (79-99); MONOCYTES % (AUTO) 2.6 % (3.0-13.0); NEUTROPHILS % (AUTO) 91.2 % (40.0-77.0); PLATELET COUNT (AUTO) 104 K/uL (130-400); RED BLOOD CELL COUNT(AUTO) 2.78 MIL/uL (4.50-6.20); RED CELL DISTRIBUTION WIDTH 21.4 % (11.0-15.5)
[2019-09-10 06:28] LABS: ALBUMIN 1.8 g/dL (3.5-5.0); BILIRUBIN,TOTAL 9.1 mg/dL (0.2-1.0); CRP QUANTITATIVE 33.4 mg/L (0.00-9.0); POTASSIUM 3.5 mmol/L (3.5-5.1)
[2019-09-10] MEDS ORDERED: POTASSIUM CHLORIDE 10MEQ/100ML 100 ML IV PRN (06:45)
[2019-09-10] MEDS ORDERED: LIDOCAINE HCL-MPF 1% 2ML VIAL IV PRN (06:45)
[2019-09-10] MEDS: PANTOPRAZOLE 40 MG/VIAL IVP SCH ×2 (08:53→21:09)
[2019-09-10] MEDS: LACTULOSE 20 GM/30 ML UDCUP PO SCH ×2 (08:54→21:10)
[2019-09-10] MEDS: ZINC SULFATE 220 CAPSULE PO SCH (08:56)
[2019-09-10] MEDS: MIDODRINE HCL 5 MG TABLET PO SCH ×3 (08:56→21:10)
[2019-09-10] MEDS: RIFAXIMIN 550 MG TABLET PO SCH ×2 (08:56→21:10)
[2019-09-10] MEDS: POTASSIUM CHLORIDE 10% ELIXIR 20 MEQ/15 ML UDCUP PO PRN ×2 (08:56→11:50)
[2019-09-10] MEDS: ASCORBIC ACID 500 MG TAB PO SCH (08:56)
--- NOTE | 2019-09-10 10:54 | NUR ---
DC PLAN RECEIVED ORDER FOR SNF OR LTAC. SPOKE TO LAMONTE REGARDING ORDER. PATIENT IS SELF PAY AND ON ROOM AIR. PER LAMONTE PATIENT NOT DOING WELL. LAINE WILL CONTINUE TO FOLLOW. Addendum: 09/10/19 at 1055 by JUDE BUCK RN CM Amended: Links added.
--- NOTE | 2019-09-10 12:54 | NUR ---
Check residual 30cc. Flush tube with 130 cc water. Tube feeding at 30cc/hr. No distension noted at this time. Pt denies paint. Will continue to monitor.
--- NOTE | 2019-09-10 17:31 | NUR ---
Pt is AA&O x3. Requesting NGT to be removed, ensure and soup for meals. Called pt sister and informed of pt change in status, notified LAMONTE BRICKMASON CONTRACTOR. Gave order to leave NGT and monitor over night, put on clear liquid diet.
[2019-09-11 03:46] VITALS: BP 103/58
[2019-09-11 06:18] LABS: HEMATOCRIT 26.8 % (42-54); MEAN CORPUSCULAR HEMOGLOBIN 31.6 pg (27.0-33.0); MEAN CORPUSCULAR VOLUME 93.1 fL (79-99); MONOCYTES % (AUTO) 2.4 % (3.0-13.0); NEUTROPHILS % (AUTO) 93.7 % (40.0-77.0); NUCLEATED RED BLOOD CELLS 0.2 % (0.0-0.19); PLATELET COUNT (AUTO) 95 K/uL (130-400); RED BLOOD CELL COUNT(AUTO) 2.88 MIL/uL (4.50-6.20); RED CELL DISTRIBUTION WIDTH 21.9 % (11.0-15.5); WHITE BLOOD COUNT (AUTO) 9.4 K/uL (4.8-10.8)
[2019-09-11] MEDS: METHYLPREDNISOLONE SOD SUCC 125MG/2ML VIAL IV SCH ×3 (06:22→20:11)
[2019-09-11] MEDS: ZOSYN 3.375GM+NS 50ML 50 ML IV SCH ×2 (06:22→16:28)
[2019-09-11 06:33] LABS: ALBUMIN 1.8 g/dL (3.5-5.0); BILIRUBIN,TOTAL 9.2 mg/dL (0.2-1.0); CREATININE 2.6 mg/dL (0.5-1.5); POTASSIUM 3.1 mmol/L (3.5-5.1); TOTAL PROTEIN, SERUM 5.3 g/dL (6.0-8.3)
[2019-09-11] MEDS: POTASSIUM CHLORIDE 20 MEQ ERTAB PO PRN (06:54)
[2019-09-11 08:00] VITALS: BP 103/65
[2019-09-11] MEDS: POTASSIUM CHLORIDE 10% ELIXIR 20 MEQ/15 ML UDCUP PO PRN ×2 (09:15→12:29)
[2019-09-11] MEDS: ZINC SULFATE 220 CAPSULE PO SCH (09:16)
[2019-09-11] MEDS: MIDODRINE HCL 5 MG TABLET PO SCH ×3 (09:16→20:11)
[2019-09-11] MEDS: ASCORBIC ACID 500 MG TAB PO SCH (09:16)
[2019-09-11] MEDS: RIFAXIMIN 550 MG TABLET PO SCH ×2 (09:16→20:11)
[2019-09-11] MEDS: LACTULOSE 20 GM/30 ML UDCUP PO SCH ×2 (09:17→20:11)
--- NOTE | 2019-09-11 09:18 | NUR ---
RD FOLLOW UP RD notification Pt requesting Ensure. Pt diet advanced to Clear Liquid diet order. No report of GI distress. Pt with Jaundice, tenting. NGT still in place, RN monitoring for tolerance. K 3.1, BUN 104, Cr 2.6, GFR 27, BG 144, T. Bili 9.2, AST 60, Alk 147. Recommend Ensure Clear TID for now due to clear liquid diet order Recommend advance diet to Full Liquid as tolerated Recommend 60mL ProMod BID RD to continue to monitor. Please notify as additional nutrition concerns arise. Thank you.
[2019-09-11] MEDS: PANTOPRAZOLE 40 MG/VIAL IVP SCH ×2 (09:20→21:48)
--- NOTE | 2019-09-11 10:53 | NUR ---
NGT removed. Pt tolerated well. No s/s of distress noted at this time. will continue to monitor.
[2019-09-11 11:00] VITALS: BP 93/54
[2019-09-11 16:00] VITALS: BP 115/70
[2019-09-11] MEDS ORDERED: LIDOCAINE 5% TOPICAL PATCH TP SCH (18:30)
[2019-09-11 20:07] VITALS: BP 120/71
[2019-09-11] MEDS ORDERED: TEMAZEPAM 7.5 MG CAPSULE PO ONE (21:00)
[2019-09-11 23:21] VITALS: BP 122/70
--- NOTE | 2019-09-12 03:23 | NUR ---
02 SAT PT 02 SAT BEGINNING OF SHIFT 88-90% ON RA PT SCHEDULED TO RECEIVE RESTORIL 02 APPLIED NC @1.5 L 02 SAT NOW 86-88 % ON 1.5 L INCREASED TO 5 L 02 SAT 90%. PT HAD NG REMOVED YESTERDAY AND HAS BEEN ON CLEAR LIQUID DIET NO DIFFICUTLY SWALLOWING OR CHEWING PILLS WILL REQUEST SPEECH EVAL FOR ?SILENT ASPIRATION. Addendum: 09/12/19 at 0450 by KIRSTEN JO RN RN 02 SAT MAINTAINING 93-94 % ON 4 L NC.
[2019-09-12 03:39] VITALS: BP 106/61
[2019-09-12] MEDS: METHYLPREDNISOLONE SOD SUCC 125MG/2ML VIAL IV SCH ×3 (03:57→20:08)
[2019-09-12] MEDS: ZOSYN 3.375GM+NS 50ML 50 ML IV SCH ×2 (03:57→17:09)
[2019-09-12 05:28] LABS: BASOPHILS % (AUTO) 0.1 % (0.0-5.0); HEMATOCRIT 26.9 % (42-54); LYMPHOCYTES % (AUTO) 3.9 % (21.0-51.0); MEAN CORPUSCULAR HGB CONC 33.1 g/dL (32.0-36.0); MEAN CORPUSCULAR VOLUME 93.7 fL (79-99); MONOCYTES % (AUTO) 2.4 % (3.0-13.0); NEUTROPHILS % (AUTO) 92.9 % (40.0-77.0); NUCLEATED RED BLOOD CELLS 0.6 % (0.0-0.19); PLATELET COUNT (AUTO) 67 K/uL (130-400); RED BLOOD CELL COUNT(AUTO) 2.87 MIL/uL (4.50-6.20); RED CELL DISTRIBUTION WIDTH 22.1 % (11.0-15.5); WHITE BLOOD COUNT (AUTO) 6.8 K/uL (4.8-10.8)
[2019-09-12 05:40] LABS: CREATININE 2.2 mg/dL (0.5-1.5)
[2019-09-12 05:49] LABS: PLATELET MORPHOLOGY COMMENT LARGE PLTS PRESENT
[2019-09-12 08:41] VITALS: BP 95/53
[2019-09-12] MEDS: LACTULOSE 20 GM/30 ML UDCUP PO SCH ×2 (09:08→20:07)
[2019-09-12] MEDS: PANTOPRAZOLE 40 MG/VIAL IVP SCH ×2 (09:08→20:08)
[2019-09-12] MEDS: LIDOCAINE 5% TOPICAL PATCH TP SCH (09:08)
[2019-09-12] MEDS: POTASSIUM CHLORIDE 20 MEQ ERTAB PO PRN ×4 (09:09→17:10)
[2019-09-12] MEDS: ZINC SULFATE 220 CAPSULE PO SCH (09:09)
[2019-09-12] MEDS: RIFAXIMIN 550 MG TABLET PO SCH ×2 (09:10→20:07)
[2019-09-12] MEDS: MIDODRINE HCL 5 MG TABLET PO SCH ×3 (09:10→20:07)
[2019-09-12] MEDS: ASCORBIC ACID 500 MG TAB PO SCH (09:10)
--- NOTE | 2019-09-12 10:24 | NUR ---
Called nephro consult for Jamison Bauer. Spoke with
--- NOTE | 2019-09-12 11:29 | NUR ---
RD UPDATE Pt continues with Clear Liquid Diet Order. Recommend advance diet to Full Liquid as tolerated, add Ensure TID once diet advanced. Recommend continue Ensure Clear TID for now due to clear liquid diet order Recommend continue 60mL ProMod BID
--- NOTE | 2019-09-12 11:30 | NUR ---
DYSPHAGIA EVAL COMPLETED. RECOMMEND FULL LIQUID DIET. RECOMMENDATIONS: 1. RECOMMEND RE-EVAL S/P PARACENTESIS. Addendum: 09/12/19 at 1250 by ANNELISE MCKINLEY, [facility] ST Amended: Links added.
--- NOTE | 2019-09-12 11:31 | NUR ---
RE: PARACENTESIS PATIENT SCHEDULED FOR PARACENTESIS BY IR. DR Precious RIDDLE NOTIFIED OF PATIENT COVID POSITIVE STATUS. PROCEDURE CANCELED. PROCEDURE TO BE PERFORMED BY COVID TEAM. Colton SALAS RN NOTIFIED OF PROCEDURE OUTCOME.
--- NOTE | 2019-09-12 11:38 | NUR ---
Called Dr. Ocampo at [phone] to inquire about paracentesis. Cancelled by IR due to covid positive status. Will return call to MD Terrence
[2019-09-12 12:14] VITALS: BP 106/61
[2019-09-12 15:50] VITALS: BP 108/63
[2019-09-12 20:10] VITALS: BP 98/60
[2019-09-12] MEDS ORDERED: POTASSIUM CHLORIDE 20MEQ/100ML 100 ML IV ONE (23:52)
[2019-09-13 00:07] VITALS: BP 95/45
[2019-09-13 03:45] VITALS: BP 95/63
[2019-09-13] MEDS: METHYLPREDNISOLONE SOD SUCC 125MG/2ML VIAL IV SCH ×3 (04:23→20:19)
[2019-09-13] MEDS: ZOSYN 3.375GM+NS 50ML 50 ML IV SCH ×2 (04:23→17:20)
[2019-09-13 05:48] LABS: HEMATOCRIT 27.8 % (42-54); LYMPHOCYTES % (AUTO) 3.8 % (21.0-51.0); MEAN CORPUSCULAR HEMOGLOBIN 31.7 pg (27.0-33.0); MEAN CORPUSCULAR HGB CONC 33.1 g/dL (32.0-36.0); MEAN CORPUSCULAR VOLUME 95.9 fL (79-99); MONOCYTES % (AUTO) 2.4 % (3.0-13.0); NUCLEATED RED BLOOD CELLS 0.9 % (0.0-0.19); PLATELET COUNT (AUTO) 84 K/uL (130-400); RED CELL DISTRIBUTION WIDTH 22.3 % (11.0-15.5); WHITE BLOOD COUNT (AUTO) 7.4 K/uL (4.8-10.8)
[2019-09-13 06:02] LABS: CREATININE 2.1 mg/dL (0.5-1.5); POTASSIUM 3.2 mmol/L (3.5-5.1)
[2019-09-13 06:07] LABS: INR 1.78 (0.85-1.15); PARTIAL THROMBOPLASTIN TIME 35.7 SEC (26.3-35.5); PROTHROMBIN TIME 18.8 SEC (9.6-11.6)
[2019-09-13 07:51] VITALS: BP 113/61
[2019-09-13] MEDS: LIDOCAINE 5% TOPICAL PATCH TP SCH (10:44)
[2019-09-13] MEDS: MIDODRINE HCL 5 MG TABLET PO SCH ×3 (10:45→20:19)
[2019-09-13] MEDS: RIFAXIMIN 550 MG TABLET PO SCH ×2 (10:45→20:19)
[2019-09-13] MEDS: PANTOPRAZOLE 40 MG/VIAL IVP SCH ×2 (10:46→20:19)
[2019-09-13] MEDS: POTASSIUM CHLORIDE 20 MEQ ERTAB PO PRN (10:46)
[2019-09-13] MEDS: ASCORBIC ACID 500 MG TAB PO SCH (10:46)
[2019-09-13] MEDS: FLUDROCORTISONE ACETATE 0.1 MG TABLET PO SCH (10:46)
[2019-09-13] MEDS: LACTULOSE 20 GM/30 ML UDCUP PO SCH ×2 (10:46→20:22)
[2019-09-13] MEDS: ZINC SULFATE 220 CAPSULE PO SCH (10:46)
[2019-09-13 12:00] VITALS: BP 114/78
--- NOTE | 2019-09-13 15:50 | NUR ---
FOLLOW UP COMPLETED Pt'S PARACENTESIS ON HOLD. RECOMMEND THE CONTINUATION OF FULL LIQUID DIET TOLERATED. NOTIFY SPEECH THERAPY FOR SKILLED SWALLOW RE-EVAL S/P PARACENTESIS. Addendum: 09/13/[address]NA Amended: Links added.
[2019-09-13 16:00] VITALS: BP 105/50
[2019-09-13 19:40] VITALS: BP 99/66
[2019-09-14] VITALS (7 sets, daily range): BP systolic 96–109; BP diastolic 47–72
[2019-09-14] MEDS: POTASSIUM CHLORIDE 20 MEQ ERTAB PO PRN ×3 (00:32→17:07)
[2019-09-14] MEDS: METHYLPREDNISOLONE SOD SUCC 125MG/2ML VIAL IV SCH ×2 (04:39→13:52)
[2019-09-14] MEDS: ZOSYN 3.375GM+NS 50ML 50 ML IV SCH ×2 (04:39→16:13)
[2019-09-14] MEDS: PANTOPRAZOLE 40 MG/VIAL IVP SCH ×2 (08:18→20:08)
[2019-09-14] MEDS: RIFAXIMIN 550 MG TABLET PO SCH ×2 (08:19→20:07)
[2019-09-14] MEDS: MIDODRINE HCL 5 MG TABLET PO SCH ×3 (08:19→20:07)
[2019-09-14] MEDS: LACTULOSE 20 GM/30 ML UDCUP PO SCH ×2 (08:19→20:08)
[2019-09-14] MEDS: LIDOCAINE 5% TOPICAL PATCH TP SCH (08:19)
[2019-09-14] MEDS: FLUDROCORTISONE ACETATE 0.1 MG TABLET PO SCH (08:19)
[2019-09-14] MEDS: ASCORBIC ACID 500 MG TAB PO SCH (08:19)
[2019-09-14] MEDS: ZINC SULFATE 220 CAPSULE PO SCH (08:19)
--- NOTE | 2019-09-14 12:45 | NUR ---
Paracentesis:Per Dr Mendenhall to D/C The order for the procedure for now.
[2019-09-15 04:00] VITALS: BP 110/43
[2019-09-15] MEDS: ZOSYN 3.375GM+NS 50ML 50 ML IV SCH ×3 (05:34→20:40)
[2019-09-15 07:21] LABS: HEMATOCRIT 28.7 % (42-54); MEAN CORPUSCULAR HEMOGLOBIN 31.6 pg (27.0-33.0); MEAN CORPUSCULAR HGB CONC 32.4 g/dL (32.0-36.0); MEAN CORPUSCULAR VOLUME 97.6 fL (79-99); NUCLEATED RED BLOOD CELLS 0.4 % (0.0-0.19); RED BLOOD CELL COUNT(AUTO) 2.94 MIL/uL (4.50-6.20); RED CELL DISTRIBUTION WIDTH 22.8 % (11.0-15.5); WHITE BLOOD COUNT (AUTO) 10.9 K/uL (4.8-10.8)
[2019-09-15 07:42] LABS: CREATININE 2.3 mg/dL (0.5-1.5); POTASSIUM 3.3 mmol/L (3.5-5.1)
[2019-09-15 08:00] VITALS: BP 101/58
[2019-09-15] MEDS: RIFAXIMIN 550 MG TABLET PO SCH ×2 (08:12→20:40)
[2019-09-15] MEDS: ASCORBIC ACID 500 MG TAB PO SCH (08:12)
[2019-09-15] MEDS: FLUDROCORTISONE ACETATE 0.1 MG TABLET PO SCH (08:12)
[2019-09-15] MEDS: ZINC SULFATE 220 CAPSULE PO SCH (08:12)
[2019-09-15] MEDS: MIDODRINE HCL 5 MG TABLET PO SCH ×3 (08:12→20:40)
[2019-09-15] MEDS: LACTULOSE 20 GM/30 ML UDCUP PO SCH ×3 (08:12→21:00)
[2019-09-15] MEDS: DEXAMETHASONE SOD PHOSPHATE 4 MG/ML 1ML VIAL IVP SCH (08:14)
[2019-09-15] MEDS: PANTOPRAZOLE 40 MG/VIAL IVP SCH ×2 (09:57→20:40)
[2019-09-15] MEDS: LIDOCAINE 5% TOPICAL PATCH TP SCH (09:57)
[2019-09-15] MEDS ORDERED: POTASSIUM CHLORIDE 20 MEQ ERTAB PO SCH (11:00)
[2019-09-15 11:13] VITALS: BP 95/58
[2019-09-15] MEDS: DEXTROSE 5%-WATER 1,000 ML IV SCH ×2 (11:54→21:00)
[2019-09-15] MEDS: OCTREOTIDE ACETATE 100 MCG/ML AMP SQ SCH ×2 (13:19→20:47)
[2019-09-15 16:24] VITALS: BP 110/69
[2019-09-15 18:18] LABS: CREATININE 2.4 mg/dL (0.5-1.5); POTASSIUM 3.7 mmol/L (3.5-5.1)
[2019-09-15 19:44] VITALS: BP 98/57
[2019-09-15 23:49] VITALS: BP 104/58
[2019-09-16 03:39] VITALS: BP 99/71
[2019-09-16 04:34] LABS: BASOPHILS % (AUTO) 0.1 % (0.0-5.0); HEMATOCRIT 26.5 % (42-54); LYMPHOCYTES % (AUTO) 5.1 % (21.0-51.0); MEAN CORPUSCULAR HEMOGLOBIN 30.9 pg (27.0-33.0); MEAN CORPUSCULAR HGB CONC 31.7 g/dL (32.0-36.0); MEAN CORPUSCULAR VOLUME 97.4 fL (79-99); MONOCYTES % (AUTO) 2.2 % (3.0-13.0); NEUTROPHILS % (AUTO) 92.1 % (40.0-77.0); NUCLEATED RED BLOOD CELLS 0.3 % (0.0-0.19); PLATELET COUNT (AUTO) 71 K/uL (130-400); RED BLOOD CELL COUNT(AUTO) 2.72 MIL/uL (4.50-6.20); WHITE BLOOD COUNT (AUTO) 10.7 K/uL (4.8-10.8)
[2019-09-16 05:06] LABS: ALBUMIN 1.6 g/dL (3.5-5.0); BILIRUBIN,TOTAL 9.6 mg/dL (0.2-1.0); CREATININE 2.4 mg/dL (0.5-1.5); POTASSIUM 3.7 mmol/L (3.5-5.1)
[2019-09-16 08:15] VITALS: BP 104/57
[2019-09-16] MEDS: ASCORBIC ACID 500 MG TAB PO SCH (08:23)
[2019-09-16] MEDS: FLUDROCORTISONE ACETATE 0.1 MG TABLET PO SCH (08:23)
[2019-09-16] MEDS: DEXAMETHASONE SOD PHOSPHATE 4 MG/ML 1ML VIAL IVP SCH (08:23)
[2019-09-16] MEDS: RIFAXIMIN 550 MG TABLET PO SCH ×2 (08:23→20:24)
[2019-09-16] MEDS: ZINC SULFATE 220 CAPSULE PO SCH (08:23)
[2019-09-16] MEDS: LACTULOSE 20 GM/30 ML UDCUP PO SCH ×2 (08:23→20:24)
[2019-09-16] MEDS: ZOSYN 3.375GM+NS 50ML 50 ML IV SCH ×2 (08:24→20:23)
[2019-09-16] MEDS: MIDODRINE HCL 5 MG TABLET PO SCH ×3 (08:58→20:24)
[2019-09-16] MEDS: LIDOCAINE 5% TOPICAL PATCH TP SCH (08:58)
[2019-09-16] MEDS: OCTREOTIDE ACETATE 100 MCG/ML AMP SQ SCH ×3 (09:04→20:24)
[2019-09-16] MEDS: PANTOPRAZOLE SODIUM 40 MG TABLET.DR PO SCH ×2 (10:11→16:28)
[2019-09-16 11:10] VITALS: BP 95/55
[2019-09-16 15:16] VITALS: BP 103/50
[2019-09-16 21:08] VITALS: BP 101/62
[2019-09-16 23:57] VITALS: BP 111/78
[2019-09-17] VITALS (7 sets, daily range): BP systolic 88–102; BP diastolic 54–59
[2019-09-17 06:08] LABS: BASOPHILS % (AUTO) 0.1 % (0.0-5.0); HEMATOCRIT 28.9 % (42-54); LYMPHOCYTES % (AUTO) 4.9 % (21.0-51.0); MEAN CORPUSCULAR HEMOGLOBIN 31.4 pg (27.0-33.0); MEAN CORPUSCULAR HGB CONC 30.4 g/dL (32.0-36.0); MEAN CORPUSCULAR VOLUME 103.2 fL (79-99); MONOCYTES % (AUTO) 3.5 % (3.0-13.0); NEUTROPHILS % (AUTO) 90.9 % (40.0-77.0); NUCLEATED RED BLOOD CELLS 0.5 % (0.0-0.19); PLATELET COUNT (AUTO) 72 K/uL (130-400); RED CELL DISTRIBUTION WIDTH 23.5 % (11.0-15.5); WHITE BLOOD COUNT (AUTO) 15.6 K/uL (4.8-10.8)
[2019-09-17 06:29] LABS: ALBUMIN 1.6 g/dL (3.5-5.0); BILIRUBIN,TOTAL 13.1 mg/dL (0.2-1.0); CREATININE 3.2 mg/dL (0.5-1.5); POTASSIUM 4.5 mmol/L (3.5-5.1)
[2019-09-17] MEDS: PANTOPRAZOLE SODIUM 40 MG TABLET.DR PO SCH ×2 (06:29→16:39)
[2019-09-17] MEDS: RIFAXIMIN 550 MG TABLET PO SCH ×2 (09:28→21:45)
[2019-09-17] MEDS: ASCORBIC ACID 500 MG TAB PO SCH (09:29)
[2019-09-17] MEDS: ZINC SULFATE 220 CAPSULE PO SCH (09:29)
[2019-09-17] MEDS: DEXAMETHASONE SOD PHOSPHATE 4 MG/ML 1ML VIAL IVP SCH (09:29)
[2019-09-17] MEDS: FLUDROCORTISONE ACETATE 0.1 MG TABLET PO SCH (09:29)
[2019-09-17] MEDS: MIDODRINE HCL 5 MG TABLET PO SCH ×3 (09:29→21:45)
[2019-09-17] MEDS: LIDOCAINE 5% TOPICAL PATCH TP SCH (09:30)
[2019-09-17] MEDS: LACTULOSE 20 GM/30 ML UDCUP PO SCH ×2 (09:30→21:00)
[2019-09-17] MEDS: OCTREOTIDE ACETATE 100 MCG/ML AMP SQ SCH ×3 (09:32→21:45)
--- NOTE | 2019-09-17 13:31 | NUR ---
FOLLOW UP. SHIRT LINE OPERATOR COORDINATED WITH NURSE DONG. Pt TOLERATING CLEAR LIQUID DIET. DIFFICULTY REPORTED WITH PILLS. RECOMMEND PILLS CRUSHED WITH APPLESAUCE. DIET UPGRADE IS NOT RECOMMENDED AT THIS TIME. Addendum: 09/17/19 at 1340 by ANNELISE MCKINLEY, [facility] [[email or web address] ST Amended: Links added.
--- NOTE | 2019-09-17 13:33 | NUR ---
DC PLAN SPOKE TO NURSE AND DR. DEL CASTILLO. PATIENT NOT IMPROVING. TRIED TO SEE IF HE CAN GET HOSPICE HOME. HOSPICE HOME NOT TAKING POSITIVE PATIENTS. RETESTED 09/15 STILL POSITIVE CAN NOT GO TO FACILITY. DR. DEL CASTILLO SAID COMFORT MEASURES OKAY TO TRANSFER TO [facility]. PATIENT IS A DNR. Addendum: 09/17/19 at 1336 by JUDE BUCK RN CM Amended: Links added.
--- NOTE | 2019-09-17 14:09 | NUR ---
RD FOLLOW UP Pt with Clear Liquid Diet order. Unable to advance. Transferred to comfort measures. Recommend Ensure Clear TID. RD to continue to monitor. Please notify as additional nutrition concerns arise. Thank you.
[2019-09-18 04:13] VITALS: BP 94/60
[2019-09-18 05:55] LABS: BASOPHILS % (AUTO) 0.1 % (0.0-5.0); LYMPHOCYTES % (AUTO) 8.5 % (21.0-51.0); MEAN CORPUSCULAR HEMOGLOBIN 30.9 pg (27.0-33.0); MEAN CORPUSCULAR HGB CONC 30.4 g/dL (32.0-36.0); MEAN CORPUSCULAR VOLUME 101.8 fL (79-99); NEUTROPHILS % (AUTO) 88.6 % (40.0-77.0); NUCLEATED RED BLOOD CELLS 0.6 % (0.0-0.19); PLATELET COUNT (AUTO) 86 K/uL (130-400); RED BLOOD CELL COUNT(AUTO) 2.75 MIL/uL (4.50-6.20); RED CELL DISTRIBUTION WIDTH 23.4 % (11.0-15.5); WHITE BLOOD COUNT (AUTO) 15.9 K/uL (4.8-10.8)
[2019-09-18 06:38] LABS: ALBUMIN 1.6 g/dL (3.5-5.0); BILIRUBIN,TOTAL 15.7 mg/dL (0.2-1.0); CREATININE 4.2 mg/dL (0.5-1.5); CRP QUANTITATIVE 26.8 mg/L (0.00-9.0); POTASSIUM 5.4 mmol/L (3.5-5.1); TOTAL PROTEIN, SERUM 5.1 g/dL (6.0-8.3)
--- NOTE | 2019-09-18 06:48 | NUR ---
Hospitalist group paged regarding critical lactic acid results of 4.7. Awaiting return call from card tape converter operator at this time. Will continue to observe.
--- NOTE | 2019-09-18 06:58 | NUR ---
Spoke with Dr. Quiroga this am regarding critical lab values called into this nurse. No orders received at this time encouraged to increase fluids.
[2019-09-18 08:06] VITALS: BP 94/55
[2019-09-18] MEDS: ZINC SULFATE 220 CAPSULE PO SCH (09:00)
[2019-09-18] MEDS: ASCORBIC ACID 500 MG TAB PO SCH (09:00)
[2019-09-18] MEDS: LACTULOSE 20 GM/30 ML UDCUP PO SCH ×2 (09:00→20:49)
[2019-09-18] MEDS: RIFAXIMIN 550 MG TABLET PO SCH ×2 (09:00→20:50)
[2019-09-18] MEDS: FLUDROCORTISONE ACETATE 0.1 MG TABLET PO SCH (09:04)
[2019-09-18] MEDS: LIDOCAINE 5% TOPICAL PATCH TP SCH (09:04)
[2019-09-18] MEDS: PANTOPRAZOLE SODIUM 40 MG TABLET.DR PO SCH ×2 (09:04→15:38)
[2019-09-18] MEDS: MIDODRINE HCL 5 MG TABLET PO SCH ×3 (09:04→20:50)
[2019-09-18] MEDS: OCTREOTIDE ACETATE 100 MCG/ML AMP SQ SCH ×3 (09:05→20:50)
[2019-09-18] MEDS: DEXAMETHASONE SOD PHOSPHATE 4 MG/ML 1ML VIAL IVP SCH (09:05)
--- NOTE | 2019-09-18 09:20 | NUR ---
NOTIFIED DR. Dieter PHILLIPS RE:CHEMISTRY RESULTS, INCLUDING POTASSIUM LEVEL AND CREATININE; VERBALIZED UNDERSTANDING. NO NEW ORDERS RECEIVED AT THIS TIME.
[2019-09-18 11:13] VITALS: BP 118/48
[2019-09-18 16:00] VITALS: BP 98/50
[2019-09-18] MEDS: SODIUM CHLORIDE 0.9% 1000ML 500 ML IV SCH ×2 (19:45→23:12)
[2019-09-18] MEDS ORDERED: DEXTROSE 5%-WATER 1,000 ML IV SCH (19:45)
[2019-09-18 20:02] VITALS: BP 91/55
[2019-09-18 23:52] VITALS: BP 98/56
[2019-09-19 04:02] VITALS: BP 100/53
[2019-09-19] MEDS: SODIUM CHLORIDE 0.9% 1000ML 500 ML IV SCH (05:29)
[2019-09-19 06:32] LABS: BASOPHILS % (AUTO) 0.1 % (0.0-5.0); HEMATOCRIT 23.9 % (42-54); LYMPHOCYTES % (AUTO) 7.5 % (21.0-51.0); MEAN CORPUSCULAR HEMOGLOBIN 32.2 pg (27.0-33.0); MEAN CORPUSCULAR HGB CONC 31.4 g/dL (32.0-36.0); MEAN CORPUSCULAR VOLUME 102.6 fL (79-99); MONOCYTES % (AUTO) 1.7 % (3.0-13.0); NEUTROPHILS % (AUTO) 89.5 % (40.0-77.0); NUCLEATED RED BLOOD CELLS 1.2 % (0.0-0.19); PLATELET COUNT (AUTO) 64 K/uL (130-400); RED BLOOD CELL COUNT(AUTO) 2.33 MIL/uL (4.50-6.20); RED CELL DISTRIBUTION WIDTH 23.8 % (11.0-15.5); WHITE BLOOD COUNT (AUTO) 16.1 K/uL (4.8-10.8)
[2019-09-19] MEDS: PANTOPRAZOLE SODIUM 40 MG TABLET.DR PO SCH ×2 (06:34→16:30)
[2019-09-19 07:00] VITALS: BP 96/48
[2019-09-19 07:08] LABS: ALBUMIN 1.5 g/dL (3.5-5.0); POTASSIUM 4.9 mmol/L (3.5-5.1); TOTAL PROTEIN, SERUM 4.5 g/dL (6.0-8.3)
[2019-09-19 07:18] LABS: PLATELET MORPHOLOGY COMMENT DECREASED
[2019-09-19 07:21] LABS: BILIRUBIN,TOTAL 16.5 mg/dL (0.2-1.0)
[2019-09-19] MEDS: FLUDROCORTISONE ACETATE 0.1 MG TABLET PO SCH (09:00)
[2019-09-19] MEDS: ZINC SULFATE 220 CAPSULE PO SCH (09:00)
[2019-09-19] MEDS: LACTULOSE 20 GM/30 ML UDCUP PO SCH ×2 (09:00→21:00)
[2019-09-19] MEDS: RIFAXIMIN 550 MG TABLET PO SCH ×2 (09:00→21:45)
[2019-09-19] MEDS: ASCORBIC ACID 500 MG TAB PO SCH (09:00)
[2019-09-19] MEDS: OCTREOTIDE ACETATE 100 MCG/ML AMP SQ SCH ×3 (09:27→21:45)
[2019-09-19] MEDS: DEXAMETHASONE SOD PHOSPHATE 4 MG/ML 1ML VIAL IVP SCH (09:27)
[2019-09-19] MEDS: MEROPENEM 1 GM VIAL IVP SCH (09:27)
[2019-09-19] MEDS: MIDODRINE HCL 5 MG TABLET PO SCH ×3 (09:28→21:44)
[2019-09-19] MEDS: LIDOCAINE 5% TOPICAL PATCH TP SCH (09:29)
[2019-09-19 11:00] VITALS: BP 91/55
--- NOTE | 2019-09-19 13:57 | NUR ---
PT.'S AUNT, RUFINO NETTLES, ALLOWED TO VISIT PT. PER MOTHER'S REQUEST. VISITOR AT ROOM WINDOW. UPDATED ON STATUS AND QUESTIONS ANSWERED.
[2019-09-19 16:00] VITALS: BP 91/60
[2019-09-19 19:00] VITALS: BP 84/49
[2019-09-19 23:00] VITALS: BP 87/57
[2019-09-20] VITALS (7 sets, daily range): BP systolic 65–145; BP diastolic 40–69
[2019-09-20] MEDS: PANTOPRAZOLE SODIUM 40 MG TABLET.DR PO SCH ×2 (08:37→16:28)
[2019-09-20] MEDS: LACTULOSE 20 GM/30 ML UDCUP PO SCH ×2 (08:37→20:41)
[2019-09-20] MEDS: DEXAMETHASONE SOD PHOSPHATE 4 MG/ML 1ML VIAL IVP SCH (08:37)
[2019-09-20] MEDS: MEROPENEM 1 GM VIAL IVP SCH (08:37)
[2019-09-20] MEDS: MIDODRINE HCL 5 MG TABLET PO SCH ×3 (08:38→20:41)
[2019-09-20] MEDS: RIFAXIMIN 550 MG TABLET PO SCH ×2 (08:38→20:41)
[2019-09-20] MEDS: ZINC SULFATE 220 CAPSULE PO SCH (08:39)
[2019-09-20] MEDS: ASCORBIC ACID 500 MG TAB PO SCH (08:39)
[2019-09-20] MEDS: LIDOCAINE 5% TOPICAL PATCH TP SCH (08:39)
[2019-09-20] MEDS ORDERED: SODIUM CHLORIDE 0.9% 250 ML IV ONE (08:47)
[2019-09-20] MEDS ORDERED: LORAZEPAM 2 MG/ML 1 ML VIAL IVP PRN (09:15)
[2019-09-20] MEDS ORDERED: ARTIFICAL TEARS SOL 15 ML OU PRN (09:15)
[2019-09-20] MEDS ORDERED: HALOPERIDOL LACTATE 5 MG/ML VIAL IV PRN ×2 (09:15)
[2019-09-20] MEDS ORDERED: HALOPERIDOL 1 MG TABLET PO PRN ×2 (09:15)
[2019-09-20] MEDS ORDERED: ACETAMINOPHEN 650 MG SUPPOSITORY RC PRN (09:15)
[2019-09-20] MEDS ORDERED: LORAZEPAM 1 MG TABLET PO PRN (09:15)
[2019-09-20] MEDS ORDERED: ACETAMINOPHEN 325 MG TAB PO PRN (09:15)
[2019-09-20] MEDS ORDERED: ONDANSETRON HCL 4 MG/2 ML VIAL IVP PRN (09:15)
[2019-09-20] MEDS ORDERED: MORPHINE SULFATE 20MG/ML ORAL 0.25 ML PO PRN ×4 (09:15)
[2019-09-20] MEDS ORDERED: ONDANSETRON 4 MG TABLET PO PRN (09:15)
[2019-09-20] MEDS: OCTREOTIDE ACETATE 100 MCG/ML AMP SQ SCH ×3 (10:43→20:41)
[2019-09-20] MEDS ORDERED: MORPHINE SULFATE 2 MG/ML 1ML SYG IVP PRN (12:45)
[2019-09-21 03:58] VITALS: BP 66/42
[2019-09-21] MEDS: PANTOPRAZOLE SODIUM 40 MG TABLET.DR PO SCH ×2 (07:30→16:01)
--- NOTE | 2019-09-21 07:43 | NUR ---
PT REMAINS ON COMFORT CARE MEASURES. UNABLE TO TAKE ORAL MEDS, NRB MASK AT 15L IN PLACE. HOB ELEVATED APPROX. 25 DEGREES FOR COMFORT.
[2019-09-21 08:15] VITALS: BP_SYST 136; BP_SYST 76; BP_DIAS 28; BP_DIAS 73
[2019-09-21 08:18] VITALS: BP 85/23
--- NOTE | 2019-09-21 08:39 | NUR ---
CONTINUED COMFORT CARE, NO NEW CHANGES, EVEN SLOW RESP WITH NRB AT 15L, HOB ELEVATED FOR COMFORT, ANDREA PATENT. PT RESPONDS TO VOICE AND TOUCH
[2019-09-21] MEDS: LACTULOSE 20 GM/30 ML UDCUP PO SCH (09:00)
[2019-09-21] MEDS: ZINC SULFATE 220 CAPSULE PO SCH (09:00)
[2019-09-21] MEDS: MIDODRINE HCL 5 MG TABLET PO SCH ×2 (09:00→13:37)
[2019-09-21] MEDS: RIFAXIMIN 550 MG TABLET PO SCH (09:00)
[2019-09-21] MEDS ORDERED: DEXAMETHASONE 4 MG TAB PO SCH (09:00)
--- NOTE | 2019-09-21 09:15 | NUR ---
EVEN SLOW RESP ON 15LNRB IN PLACE, HOB REMAINS ELEVATED APPROX. 25 DEGREES, PT RESTING WITH EYES CLOSED, NO CURRENT S/S OF PAIN OR DISCOMFORT, CONTINUED COMFORT MEASURES
[2019-09-21] MEDS: ASCORBIC ACID 500 MG TAB PO SCH (09:19)
[2019-09-21] MEDS: OCTREOTIDE ACETATE 100 MCG/ML AMP SQ SCH ×2 (09:26→13:44)
--- NOTE | 2019-09-21 09:35 | NUR ---
REMAINS RESTFUL WITH HOB ELEVATED, NRB MASK @15L IN PLACE, NO CURRENT S/S OF PAIN OR DISCOMFORT. ANDREA PATENT TO DD, SCD'S IN PLACE. RESPONDS TO VOICE AND TOUCH
--- NOTE | 2019-09-21 10:00 | NUR ---
CONTINUED COMFORT CARE MEASURES, NO CURRENT S/S OF DISCOMFORT OR PAIN, EVEN RESP ON 15LNRB MASK. HOB ELEVATED APPROX 25 DEGREES, ANDREA PATENT TO DD, SCD'S IN PLACE.
--- NOTE | 2019-09-21 10:35 | NUR ---
NO NEW CHANGES IN PT STATUS, CONTINUED COMFORT CARE MEASURES WITH EVEN RESP ON 15L NRB MASK, NO S/S OF PAIN OR DISCOMFORT, HOB ELEVATED APPROX. 25 DEGREES FOR COMFORT, ANDREA PATENT TO DD, SCD'S IN PLACE. PT WITH OPEN EYES TO VOICE AND TOUCH.
--- NOTE | 2019-09-21 11:33 | NUR ---
CONTINUED COMFORT CARE MEASURES, HOB ELEVATED APPROX. 25 DEGREES, NRB MASK AT 15L, RESP EVEN AND UNLABORED, NO S/S OF PAIN OR DISCOMFORT, RESPONDS BY OPENING HIS EYES TO VOICE AND TOUCH. ANDREA PATENT TO EFREN VIEYRA'S IN PLACE.
[2019-09-21 11:37] VITALS: BP 87/26
--- NOTE | 2019-09-21 12:40 | NUR ---
SPOKE WITH PTS SISTER, SHIVA. HER REQUEST WAS TO BE CALLED FIRST IN REGARD TO HER BROTHERS STATUS. PT CONTINUES TO REST WITH NO CURRENT S/S OF PAIN OR DISCOMFORT. NO CURRENT S/S OF RESP DISTRESS WITH NRB MASK AT 15L, ANDREA PATENT TO DD, SCD'S IN PLACE
--- NOTE | 2019-09-21 13:56 | NUR ---
NO NEW CHANGES IN PT STATUS. NRB MASK REMAINS AT 15L, PT HAS SLOW EVEN RESP WITH HOB ELEVATED APPROX. 25 DEGREES. CONTINUED COMFORT CARE MEASURES, EMRE IS PATENT TO EFREN VIEYRA'S IN PLACE. NO CURRENT S/S OF PAIN OR DISCOMFORT.
--- NOTE | 2019-09-21 14:38 | NUR ---
NO NEW CHANGES, PT REMAINS ON COMFORT CARE MEASURES WITH NRB MASK IN PLACE AT 15L. HOB ELEVATED APPROX. 25 DEGREES, SCD'S IN PLACE, ANDREA PATENT TO DD. NO CURRENT S/S OF PAIN OR DISCOMFORT. EVEN, SLOW, UNLABORED RESP. NOTED
--- NOTE | 2019-09-21 15:30 | NUR ---
PT REMAINS ON COMFORT CARE MEASURES WITH NRB MASK AT 15L, HOB ELEVATED, ANDREA PATENT, SCD'S IN PLACE. NO CURRENT S/S OF PAIN OR DISCOMFORT, DR. PAULA AND HIS VP MADE ROUNDS.
[2019-09-21 16:20] VITALS: BP 71/23
--- NOTE | 2019-09-21 17:19 | NUR ---
PT REMAINS ON COMFORT CARE MEASURES WITH 15L NRB MASK IN PLACE WITH HOB ELEVATED APPROX. 25 DEGREES. SLOW RESP., NO CURRENT SIGN OF PAIN OR DISCOMFORT. EMRE REMAINS PATENT TO AZALIA, SCD'S ARE IN PLACE.
--- NOTE | 2019-09-21 18:11 | NUR ---
CONTINUED COMFORT CARE MEASURES WITH 15L NRB MASK IN PLACE, HOB ELEVATED APPROX. 25 DEGREES. EYES CLOSED, SLOW RESPIRATIONS, NO CURRENT S/S OF PAIN OR DISCOMFORT, SCD'S IN PLACE, ANDREA PATENT TO DD. NO NEW CHANGES OF STATUS
[2019-09-21 19:30] VITALS: BP 51/21
[2019-09-21] MEDS ORDERED: DEXTROSE 50%-WATER 50 ML DISP.SYRIN IV ONE (21:56)
== END 2019-09-22 07:45 | disposition expired | DRG 177 ==
LOC: EDH 02:09 → EDHIP 02:10 → 2CV 18:32 → 2DH 09-08 15:06 → 3AH 09-20 04:26
PROVIDERS: ADMIT Internal Medicine; ATTEND Internal Medicine
PROC: XW13325 Transfusion of Convalescent Plasma (Nonautologous) into Peripheral Vein, Percutaneous Approach, New Technology Group 5 (ICD-10-PCS; principal; 2019-09-07)
PROC: 30233N1 Transfusion of Nonautologous Red Blood Cells into Peripheral Vein, Percutaneous Approach (ICD-10-PCS; 2019-09-07)
DX: U07.1 COVID-19 (principal); J12.89 Other viral pneumonia; K76.7 Hepatorenal syndrome; J96.01 Acute respiratory failure with hypoxia; K92.2 Gastrointestinal hemorrhage, unspecified; N17.9 Acute kidney failure, unspecified; E87.1 Hypo-osmolality and hyponatremia; D68.4 Acquired coagulation factor deficiency; D62 Acute posthemorrhagic anemia; E87.0 Hyperosmolality and hypernatremia; E87.2 Acidosis; I85.10 Secondary esophageal varices without bleeding; N18.9 Chronic kidney disease, unspecified; K70.30 Alcoholic cirrhosis of liver without ascites; K70.40 Alcoholic hepatic failure without coma; D63.8 Anemia in other chronic diseases classified elsewhere; E86.0 Dehydration; F17.200 Nicotine dependence, unspecified, uncomplicated; I12.9 Hypertensive chronic kidney disease with stage 1 through stage 4 chronic kidney disease, or unspecified chronic kidney disease; I95.89 Other hypotension; R62.7 Adult failure to thrive; Z66 Do not resuscitate
CPT/HCPCS: 36415; 71045; 80048; 80053; 81001; 82140; 82550; 82728; 82948; 83605; 83615; 83735; 83874; 84145; 84484; 85014; 85018; 85025; 85027; 85378; 85610; 85730; 86140; 86850; 86900; 86901; 86922; 86927; 87040; 87088; 87426; 87486; 87581; 87633; 87798; 92610; 93005; C9113; G0378; J1100; J2185; J2354; J2405; J2543; J2765; J2920; J2930; J3430; J3480; J3490; J7030; J7050; J7070; P9016; P9017